=== PATIENT | male | born 1975 | race Caucasian/White ===

== ENCOUNTER 2017-03-25 19:45 | Inpatient (IN) | payer OTHER ==
[2017-03-25 20:31] VITALS: BMI 33.9
--- NOTE | 2017-03-25 21:59 | HP ---
COWS - Scale Resting Pulse: 1= [place] 81-100 Sweatin=Flushed/Facial Moisture Restless Observation: 1= Difficult to Sit Still Pupil Size: 1= Pupils >than Normal Bone or Joint Aches: 2= Severe Diffuse Aches Runny Nose/ Eye Tearin= Runny Nose/Eyes GI Upset > 30mins: 3= Vomiting/Diarrhea (diarrhea x 4, no vomiting) Tremor Observation: 2= Slight Tremor Visible Yawning Observation: 1= 1-2x During Session Anxiety or Irritability: 2=Irritable/Anxious Goose Flesh Skin: 0=Smooth Skin COWS Score: 17 CIWA Score - CIWA Score Nausea/Vomitin Muscle Tremors: 4-Moderate,w/Arms Extend Anxiety: 4-Mod. Anxious/Guarded Agitation: 1-Slight > Activity Paroxysmal Sweats: 3 Orientation: 0-Oriented Tacttile Disturbances: 0-None Auditory Disturbances: 0-None Visual Disturbances: 0-None Headache: 0-None Present CIWA-Ar Total Score: 15 Admission ROS S - HPI Chief Complaint: Alcohol and heroin withdrawal symptoms Allergies/Adverse Reactions: Allergies Allergy/AdvReac Type Severity Reaction Status Date / Time No Known Allergies Allergy Verified 03/25/17 21:37 History of Present Illness: 41 years old male with alcohol and heroin dependence is admitted to detox. Patient has been in previous detox and reports 3 years of sobriety. He denies past medical history and suicidal ideation at this time. Exam Limitations: No Limitations - Ebola screening Have you traveled outside of the country in the last 21 days: No Have you had contact with anyone from an Ebola affected area: No Have you been sick,other than usual withdrawal symptoms: No Do you have a fever: No - Review of Systems Constitutional: Chills, Loss of Appetite, Malaise, Night Sweats, Changes in sleep EENT: reports: Nose Congestion, Sinus Pressure Respiratory: reports: No Symptoms reported Cardiac: reports: No Symptoms Reported GI: reports: Diarrhea (x 4), Nausea, Poor Appetite, Poor Fluid Intake, Abdominal cramping : reports: No Symptoms Reported Musculoskeletal: reports: Back Pain, Muscle Pain, Muscle Weakness Integumentary: reports: Flushing Neuro: reports: Headache, Tingling, Tremors Endocrine: reports: No Symptoms Reported Hematology: reports: No Symptoms Reported Psychiatric: reports: Orientated x3, Agitated, Anxious Other Systems: Reviewed and Negative Patient History - Patient Medical History Hx Anemia: No Hx Asthma: No Hx Chronic Obstructive Pulmonary Disease (COPD): No Hx Cancer: No Hx Cardiac Disorders: No Hx Congestive Heart Failure: No Hx Hypertension: No Hx Hypercholesterolemia: No Hx Pacemaker: No HX Cerebrovascular Accident: No Hx Seizures: No Hx Diabetes: No Hx Gastrointestinal Disorders: No Hx Liver Disease: No Hx Genitourinary Disorders: No Hx Sexually Transmitted Disorders: No Hx Renal Disease (ESRD): No Hx Thyroid Disease: No Hx Human Immunodeficiency Virus (HIV): No (Negative 2016) Hx Hepatitis C: No (Negative 2017) Hx Depression: Yes (Denies suicidal ideation at this time) Hx Suicide Attempt: No Hx Bipolar Disorder: No Hx Schizophrenia: No - Patient Surgical History Past Surgical History: No Hx Neurologic Surgery: No Hx Cataract Extraction: No Hx Cardiac Surgery: No Hx Lung Surgery: No Hx Abdominal Surgery: No Hx Appendectomy: No Hx Cholecystectomy: No Hx Genitourinary Surgery: No Hx Orthopedic Surgery: No Anesthesia Reaction: No - PPD History Previous Implant?: Yes (Reports allergy ) Documented Results: Positive w/proof Implanted On Prior [facility] Admission?: Yes PPD to be Administered?: No - Reproductive History Patient is a Female of Child Bearing Age (11 -55 yrs old): No (MALE) - Smoking Cessation Smoking history: Current every day smoker Have you smoked in the past 12 months: Yes Aproximately how many cigarettes per day: 20 Hx Chewing Tobacco Use: No Initiated information on smoking cessation: Yes 'Breaking Loose' booklet given: 03/25/17 - Substance & Tx. History Hx Alcohol Use: Yes Substance Use Type: Cocaine, Heroin Hx Substance Use Treatment: No ([facility]) - Substances Abused Alcohol Route: Oral Frequency: Daily Amount used: liquor- 3 pints Age of first use: 19 Date of Last Use: 03/25/17 Heroin Route: Inhalation Frequency: Daily Amount used: 20 bags Age of first use: 38 Date of Last Use: 03/25/17 Family Disease History - Family Disease History Family Disease History: Diabetes: Grandparent, Father (etoh), Heart Disease: Grandparent, Father, Other: Father Admission Physical Exam BHS - Vital Signs Vital Signs: Vital Signs - 24 hr 03/25/17 20:25 Temperature 97.9 F Pulse Rate 83 Respiratory 18 Rate Blood Pressure 160/90 - Physical General Appearance: Yes: Moderate Distress HEENTM: Yes: EOMI, Normal Voice, SWETHA Respiratory: Yes: Lungs Clear, Normal Breath Sounds, No Respiratory Distress Neck: Yes: Supple Breast: Yes: Breast Exam Deferred Cardiology: Yes: Regular Rhythm, Regular Rate, S1, S2 Abdominal: Yes: Normal Bowel Sounds, Soft Genitourinary: Yes: Within Normal Limits Back: Yes: Normal Inspection Musculoskeletal: Yes: Back pain, Muscle Pain, Muscle weakness Extremities: Yes: Tremors Neurological: Yes: Alert, Normal Response Integumentary: Yes: Warm Lymphatic: Yes: Within Normal Limits - Diagnostic (1) Alcohol dependence with uncomplicated withdrawal Current Visit: Yes Status: Acute (2) Opioid dependence with withdrawal Current Visit: Yes Status: Acute (3) Cocaine dependence, uncomplicated Current Visit: Yes Status: Acute (4) Depression Current Visit: Yes Status: Chronic (5) Nicotine dependence Current Visit: Yes Status: Acute Qualifiers: Nicotine product type: cigarettes Substance use status: in withdrawal Qualified Code(s): F17.213 - Nicotine dependence, cigarettes, with withdrawal Cleared for Admission [facility] - Detox or Rehab [facility] Level of Care: Medically Managed Detox Regimen/Protocol: Methadone/Librium [facility] Breath Alcohol Content Breath Alcohol Content: 0 Urine Drug Screen - Results Drug Screen Negative: No Urine Drug Screen Results: JEREMY-Cocaine, OPI-Opiates, OXY-Oxycodone
[2017-03-25] MEDS ORDERED: MENTHOL/PHENOL 1 EACH UD MM PRN (22:09)
[2017-03-25] MEDS ORDERED: P-EPHED 60MG/TRIPROLIDI 2.5MG TABLET PO PRN (22:09)
[2017-03-25] MEDS ORDERED: METHADONE HCL 10 MG TABLET (FOR DETOX USE ONLY) PO ONE ×2 (22:09→23:00)
[2017-03-25] MEDS ORDERED: MAG HYDROX/AL HYDROX/SIMETH 30 ML UNIT-DOSE CUP PO PRN (22:09)
[2017-03-25] MEDS ORDERED: ACETAMINOPHEN 325 MG TABLET (FP) PO PRN (22:09)
[2017-03-25] MEDS ORDERED: IBUPROFEN 400 MG TABLET (FP) PO PRN (22:09)
[2017-03-25] MEDS ORDERED: LOPERAMIDE HCL 2 MG CAPSULE PO PRN (22:09)
[2017-03-25] MEDS ORDERED: NICOTINE POLACRILEX 2 MG GUM BC PRN (22:09)
[2017-03-25] MEDS ORDERED: guaiFENesin/D-METHORPHAN HB 10 ML UNIT-DOSE CUPS PO PRN (22:09)
[2017-03-25] MEDS ORDERED: MAGNESIUM HYDROX 2400MG/30ML ORAL SUSPENSION 30 ML CUP PO PRN (22:09)
[2017-03-25] MEDS ORDERED: MAGNESIUM CITRATE 300 ML BOTTLE PO PRN (22:09)
[2017-03-25] MEDS: chlordiazePOXIDE HCL 25 MG CAPSULE PO SCH (23:26)
[2017-03-26] MEDS: chlordiazePOXIDE HCL 25 MG CAPSULE PO SCH ×4 (05:29→22:23)
[2017-03-26] MEDS ORDERED: METHADONE HCL 10 MG TABLET (FOR DETOX USE ONLY) PO SCH (10:00)
[2017-03-26] MEDS: NICOTINE 14 MG/24 HOURS TOPICAL PATCH TD SCH (10:20)
[2017-03-26 10:21] LABS: HEMATOCRIT 43.4 % (35.4-49); HEMOGLOBIN 13.9 GM/dL (11.7-16.9); MCH 27.1 pg (25.7-33.7); MCHC 32.1 g/dl (32.0-35.9); MEAN CELL VOLUME 84.5 fl (80-96); MEAN PLT VOLUME 7.9 fl (7.5-11.1); PLATELET COUNT 284 K/MM3 (134-434); RBC 5.13 M/mm3 (4.00-5.60); RDW 14.6 % (11.9-15.9); WHITE BLOOD COUNT 8.1 K/mm3 (4.0-10.0)
[2017-03-26 10:30] LABS: CHLORIDE 102 mmol/L (98-107); POTASSIUM 3.6 mmol/L (3.5-5.1); SODIUM 140 mmol/L (136-145)
[2017-03-26 10:43] LABS: ALBUMIN 3.5 g/dl (3.4-5.0); ALK PHOS 67 U/L (45-117); ANION GAP 8 (8-16); BILIRUBIN,TOTAL 0.5 mg/dL (0.2-1.0); BLOOD UREA NITROGEN 11 mg/dL (7-18); CALCIUM 8.6 mg/dL (8.5-10.1); CO2 30 mmol/L (21-32); CREATININE 0.7 mg/dL (0.7-1.3); GLUCOSE,RANDOM 88 mg/dL (74-106); SGOT/AST 17 U/L (15-37); SGPT/ALT 28 U/L (12-78); TOT PROT 6.9 g/dl (6.4-8.2)
--- NOTE | 2017-03-26 11:11 | PN ---
[facility] CIWA - CIWA Score Nausea/Vomitin-No Nausea/No Vomiting Muscle Tremors: 4-Moderate,w/Arms Extend Anxiety: 4-Mod. Anxious/Guarded Agitation: 3 Paroxysmal Sweats: 1-Minimal Palms Moist Orientation: 0-Oriented Tacttile Disturbances: 3-Moderate Itch/Numb/Burn Auditory Disturbances: 0-None Visual Disturbances: 0-None Headache: 0-None Present CIWA-Ar Total Score: 15 [facility] COWS - Scale Resting Pulse: 1= [place] 81-100 Sweatin= Chills/Flushing Restless Observation: 3= Extraneous Movement Pupil Size: 2= Moderately Dilated Bone or Joint Aches: 4=Acute Joint/Muscle Pain Runny Nose/ Eye Tearin= None GI Upset > 30mins: 0= None Tremor Observation of Outstretched Hands: 1= Tremor Lena, Not Seen Yawning Observation: 1= 1-2x During Session Anxiety or Irritability: 1=Feels Anxious/Irritable Goose Flesh Skin: 0=Smooth Skin COWS Score: 14 [facility] Progress Note (SOAP) Subjective: ANXIETY,SWEATS,FATIGUE. Objective: 03/26/17 11:10 Vital Signs Temperature 97.1 F L 03/26/17 09:09 Pulse Rate 87 03/26/17 09:09 Respiratory Rate 19 03/26/17 06:48 Blood Pressure 152/86 03/26/17 09:09 O2 Sat by Pulse Oximetry (%) Laboratory Last Values WBC 8.1 K/mm3 (4.0-10.0) 03/26/17 07:00 RBC 5.13 M/mm3 (4.00-5.60) 03/26/17 07:00 Hgb 13.9 GM/dL (11.7-16.9) 03/26/17 07:00 Hct 43.4 % (35.4-49) 03/26/17 07:00 MCV 84.5 fl (80-96) 03/26/17 07:00 MCH 27.1 pg (25.7-33.7) 03/26/17 07:00 MCHC 32.1 g/dl (32.0-35.9) 03/26/17 07:00 RDW 14.6 % (11.9-15.9) 03/26/17 07:00 Plt Count 284 K/MM3 (134-434) 03/26/17 07:00 MPV 7.9 fl (7.5-11.1) 03/26/17 07:00 Sodium 140 mmol/L (136-145) 03/26/17 07:00 Potassium 3.6 mmol/L (3.5-5.1) 03/26/17 07:00 Chloride 102 mmol/L (98-107) 03/26/17 07:00 Carbon Dioxide 30 mmol/L (21-32) 03/26/17 07:00 Anion Gap 8 (8-16) 03/26/17 07:00 BUN 11 mg/dL (7-18) 03/26/17 07:00 Creatinine 0.7 mg/dL (0.7-1.3) 03/26/17 07:00 Creat Clearance w eGFR > 60 (>60) 03/26/17 07:00 Random Glucose 88 mg/dL (74-106) D 03/26/17 07:00 Calcium 8.6 mg/dL (8.5-10.1) 03/26/17 07:00 Total Bilirubin 0.5 mg/dL (0.2-1.0) D 03/26/17 07:00 AST 17 U/L (15-37) D 03/26/17 07:00 ALT 28 U/L (12-78) D 03/26/17 07:00 Alkaline Phosphatase 67 U/L (45-117) 03/26/17 07:00 Total Protein 6.9 g/dl (6.4-8.2) 03/26/17 07:00 Albumin 3.5 g/dl (3.4-5.0) 03/26/17 07:00 OTHER LABS PENDING Assessment: 03/26/17 11:10 WITHDRAWAL SX Plan: CONTINUE DETOX
[2017-03-26] MEDS: PRENATAL VITAMINS W/ FOLIC ACID TABLET (FP) PO SCH (11:24)
--- NOTE | 2017-03-26 14:32 | CONSULT ---
[facility] Psychiatric Consult - Data Date of interview: 03/26/17 Admission source: [facility] Identifying data: Readmission to [facility] for this 41 y/o male seeking detox treatment on for alcohol,heroin and cocaine dependence.Patient is single,a father of one,domiciled and currently employed ( self-report). Substance Abuse History: Confirmed by patient in this interview.Details in current [facility] report.Smoking history: Current every day smoker. Have you smoked in the past 12 months: Yes. Aproximately how many cigarettes per day: 20. Hx Chewing Tobacco Use: No. Initiated information on smoking cessation: Yes. ' Breaking Loose' booklet given: 03/25/17. - Substance & Tx. History. Hx Alcohol Use: Yes. Substance Use Type: Cocaine, Heroin. Hx Substance Use Treatment: No ([facility]). - Substances Abused. Alcohol. Route: Oral. Frequency: Daily. Amount used: liquor- 3 pints. Age of first use: 19. Date of Last Use: 03/25/17. Heroin. Route: Inhalation. Frequency: Daily. Amount used: 20 bags. Age of first use: 38. Date of Last Use: 03/25/17 Medical History: Patient reports good general health. Psychiatric History: Patient denies. Physical/Sexual Abuse/Trauma History: Patient denies. Additional Comment: Urine Drug Screen Results: JEREMY-Cocaine, OPI-Opiates, OXY- Oxycodone.Noted. Mental Status Exam - Mental Status Exam Alert and Oriented to: Time, Place, Person Cognitive Function: Impaired (due to moderately sedated state) Patient Appearance: Disheveled (obese) Mood: Withdrawn Affect: Mood Congruent, Constricted Patient Behavior: Sedated, Fatigued, Cooperative Speech Pattern: Delayed, Slurred (non-spontaneous speech but patient is able to answer simple questions and provide personal information) Voice Loudness: Normal Thought Process: Disorganized, Disoriented (due to sedation) Thought Disorder: Not Present Hallucinations: Denies Suicidal Ideation: Denies Homicidal Ideation: Denies Insight/Judgement: Poor Sleep: Well Appetite: Good Muscle strength/Tone: Normal Gait/Station: Other (slow and unsteady gait) Psychiatric Findings - Problem List ([place] 1, 2,3) (1) Opioid dependence with withdrawal Current Visit: Yes Status: Acute (2) Alcohol dependence with uncomplicated withdrawal Current Visit: Yes Status: Acute (3) Cocaine dependence, uncomplicated Current Visit: Yes Status: Acute (4) Nicotine dependence Current Visit: Yes Status: Acute Qualifiers: Nicotine product type: cigarettes Substance use status: in withdrawal Qualified Code(s): F17.213 - Nicotine dependence, cigarettes, with withdrawal - Initial Treatment Plan Initial Treatment Plan: Psychoeducation and support provided in this session.Detoxification in progress.Falls precautions.Observation.
[2017-03-26 17:06] LABS: URINE APPEARANCE CLEAR; URINE BILIRUBIN NEGATIVE (NEGATIVE); URINE BLOOD NEGATIVE (NEGATIVE); URINE COLOR YELLOW; URINE GLUCOSE (UA) NEGATIVE (NEGATIVE); URINE KETONE NEGATIVE (NEGATIVE); URINE LEUK ESTERASE NEGATIVE (NEGATIVE); URINE NITRITE NEGATIVE (NEGATIVE); URINE PROTEIN NEGATIVE (NEGATIVE); URINE UROBILINOGEN NEGATIVE mg/dL (0.2-1.0)
[2017-03-26] MEDS: THIAMINE HCL 100 MG TABLET (FP) PO SCH (22:23)
[2017-03-27] MEDS: chlordiazePOXIDE HCL 25 MG CAPSULE PO SCH ×3 (06:18→18:01)
[2017-03-27] MEDS: NICOTINE 14 MG/24 HOURS TOPICAL PATCH TD SCH (10:23)
[2017-03-27] MEDS: PRENATAL VITAMINS W/ FOLIC ACID TABLET (FP) PO SCH (10:23)
[2017-03-27] MEDS: METHADONE HCL 5 MG TABLET (FOR DETOX USE ONLY) PO SCH (10:24)
--- NOTE | 2017-03-27 10:54 | EKG ---
Test Reason : Blood Pressure : / mmHG Vent. Rate : 066 BPM Atrial Rate : 066 BPM P-R Int : 150 ms QRS Dur : 108 ms QT Int : 410 ms P-R-T Axes : 058 035 019 degrees QTc Int : 429 ms NORMAL SINUS RHYTHM NORMAL ECG NO PREVIOUS ECGS AVAILABLE Confirmed by AALIYAH ACOSTA, RUTH ([id number]) on 03/27/2017 10:54:15 AM Referred By: Confirmed By:RUTH FISCHER MD
--- NOTE | 2017-03-27 11:40 | PN ---
[facility] CIWA - CIWA Score Nausea/Vomitin-No Nausea/No Vomiting Muscle Tremors: 4-Moderate,w/Arms Extend Anxiety: 4-Mod. Anxious/Guarded Agitation: 4-Moderately Restless Paroxysmal Sweats: 1-Minimal Palms Moist Orientation: 0-Oriented Tacttile Disturbances: 3-Moderate Itch/Numb/Burn Auditory Disturbances: 0-None Visual Disturbances: 0-None Headache: 0-None Present CIWA-Ar Total Score: 16 S COWS - Scale Resting Pulse: 0= [place] 80 or Below Sweatin= Chills/Flushing Restless Observation: 3= Extraneous Movement Pupil Size: 0= Normal to Room Light Bone or Joint Aches: 2= Severe Diffuse Aches Runny Nose/ Eye Tearin= Nasal Congestion GI Upset > 30mins: 0= None Tremor Observation of Outstretched Hands: 2= Slight Tremor Visible Yawning Observation: 1= 1-2x During Session Anxiety or Irritability: 2=Irritable/Anxious Goose Flesh Skin: 0=Smooth Skin COWS Score: 12 S Progress Note (SOAP) Subjective: ANXIETY,SWEATS,IRRITABILITY,LABILE MOOD-CRYING. PT WAS SEEN BY PSYCH PREVIOUS DAY BUT WILL REFER TODAY FOR F/U. Objective: 03/27/17 11:43 Vital Signs Temperature 95.6 F L 03/27/17 09:08 Pulse Rate 68 03/27/17 09:08 Respiratory Rate 16 03/27/17 09:08 Blood Pressure 136/93 03/27/17 09:08 O2 Sat by Pulse Oximetry (%) Laboratory Last Values WBC 8.1 K/mm3 (4.0-10.0) 03/26/17 07:00 RBC 5.13 M/mm3 (4.00-5.60) 03/26/17 07:00 Hgb 13.9 GM/dL (11.7-16.9) 03/26/17 07:00 Hct 43.4 % (35.4-49) 03/26/17 07:00 MCV 84.5 fl (80-96) 03/26/17 07:00 MCH 27.1 pg (25.7-33.7) 03/26/17 07:00 MCHC 32.1 g/dl (32.0-35.9) 03/26/17 07:00 RDW 14.6 % (11.9-15.9) 03/26/17 07:00 Plt Count 284 K/MM3 (134-434) 03/26/17 07:00 MPV 7.9 fl (7.5-11.1) 03/26/17 07:00 Sodium 140 mmol/L (136-145) 03/26/17 07:00 Potassium 3.6 mmol/L (3.5-5.1) 03/26/17 07:00 Chloride 102 mmol/L (98-107) 03/26/17 07:00 Carbon Dioxide 30 mmol/L (21-32) 03/26/17 07:00 Anion Gap 8 (8-16) 03/26/17 07:00 BUN 11 mg/dL (7-18) 03/26/17 07:00 Creatinine 0.7 mg/dL (0.7-1.3) 03/26/17 07:00 Creat Clearance w eGFR > 60 (>60) 03/26/17 07:00 Random Glucose 88 mg/dL (74-106) D 03/26/17 07:00 Calcium 8.6 mg/dL (8.5-10.1) 03/26/17 07:00 Total Bilirubin 0.5 mg/dL (0.2-1.0) D 03/26/17 07:00 AST 17 U/L (15-37) D 03/26/17 07:00 ALT 28 U/L (12-78) D 03/26/17 07:00 Alkaline Phosphatase 67 U/L (45-117) 03/26/17 07:00 Total Protein 6.9 g/dl (6.4-8.2) 03/26/17 07:00 Albumin 3.5 g/dl (3.4-5.0) 03/26/17 07:00 Urine Color Yellow 03/26/17 13:15 Urine Appearance Clear 03/26/17 13:15 Urine pH 6.0 (5.0-8.0) 03/26/17 13:15 Ur Specific [place] 1.020 (1.001-1.035) 03/26/17 13:15 Urine Protein Negative (NEGATIVE) 03/26/17 13:15 Urine Glucose (UA) Negative (NEGATIVE) 03/26/17 13:15 Urine Ketones Negative (NEGATIVE) 03/26/17 13:15 Urine Blood Negative (NEGATIVE) 03/26/17 13:15 Urine Nitrite Negative (NEGATIVE) 03/26/17 13:15 Urine Bilirubin Negative (NEGATIVE) 03/26/17 13:15 Urine Urobilinogen Negative mg/dL (0.2-1.0) 03/26/17 13:15 Ur Leukocyte Esterase Negative (NEGATIVE) 03/26/17 13:15 RPR Titer Nonreactive (NONREACTIVE) 03/26/17 07:00 Assessment: 03/27/17 11:43 WITHDRAWAL SX Plan: CONTINUE DETOX F/U WITH PSYCHIATRIST TODAY
--- NOTE | 2017-03-27 17:56 | PN ---
Psychiatric Progress Note Vital Signs: Vital Signs Period Temp Pulse Resp BP Sys/[place] Pulse Ox Last 24 Hr 95.6 F-98.3 F 68-101 16-20 118-152/72-95 Date of Session: 03/27/17 Chief Complaint:: None offered. " I feel fine.I am getting discharged on Saturday. " HPI: Day 3 of detoxification treatment for alcohol,heroin and cocaine dependence.Doing well.Medications are well tolerated.Uneventful hospital course. ROS: Unremarkable.Markedly improved mental status.Clear sensorium.No somatic complaints. Current Medications: Active Medications Generic Name Dose Route Start Last Admin Trade Name Freq PRN Reason Stop Dose Admin Acetaminophen 650 mg 03/25/17 22:09 Tylenol - PO Q4H PRN FEVER Al Hydroxide/Mg Hydroxide 30 ml 03/25/17 22:09 Mylanta Oral Suspension - PO Q6H PRN DYSPEPSIA Chlordiazepoxide HCl 15 mg 03/27/17 23:00 Librium - PO 03/28/17 17:01 [id number] CRYSTAL Chlordiazepoxide HCl 10 mg 03/28/17 23:00 Librium - PO 03/29/17 17:01 [id number] CRYSTAL Chlordiazepoxide HCl 25 mg 03/25/17 22:09 Librium - PO 03/28/17 22:09 Q4H PRN WITHDRAWAL(CONT SUBST) Eucalyptus/Menthol/Phenol/Sorbitol 1 each 03/25/17 22:09 Cepastat Lozenge - MM Q4H PRN SORE THROAT Guaifenesin 10 ml 03/25/17 22:09 Robitussin Dm - PO Q6H PRN COUGH Ibuprofen 400 mg 03/25/17 22:09 Motrin - PO Q6H PRN PAIN LEVEL 4-6 Loperamide HCl 4 mg 03/25/17 22:09 Imodium - PO Q6H PRN DIARRHEA Magnesium Citrate 300 ml 03/25/17 22:09 Citroma - PO Q48H PRN CONSTIPATION Magnesium Hydroxide 30 ml 03/25/17 22:09 Milk Of Magnesia - PO DAILY PRN CONSTIPATION Methadone HCl 15 mg 03/27/17 10:00 03/27/17 10:24 Dolophine - PO 03/28/17 10:01 15 mg DAILY CRYSTAL Administration Methadone HCl 5 mg 03/30/17 06:00 Dolophine - PO 03/30/17 06:01 DAILY@0600 CRYSTAL Methadone HCl 10 mg 03/29/17 10:00 Dolophine - PO 03/29/17 10:01 DAILY CRYSTAL Nicotine 14 mg 03/26/17 10:00 03/27/17 10:23 Nicoderm Patch - TD 14 mg DAILY CRYSTAL Administration Nicotine Polacrilex 2 mg 03/25/17 22:09 Nicorette Gum - BC Q2H PRN NICOTINE REPLACEMENT RX Multivit/Folic Acid/Iron 1 tab 03/26/17 10:00 03/27/17 10:23 Vitamins (Sjr) - PO 1 tab DAILY CRYSTAL Administration Pseudoephedrine/Triprolidine 1 combo 03/25/17 22:09 Actifed - PO TID PRN NASAL CONGESTION Thiamine HCl 100 mg 03/26/17 22:00 03/26/17 22:23 Vitamin B1 - PO 100 mg HS CRYSTAL Administration Medication(s) Change(s): None. Current Side Effect: No Lab tests ordered: No Lab tests reviewed: Yes Provider note:: Patient referred for re-evaluation at own request.Unclear reasons.It appears that Mr Doll wanted to " see the psychiatrist for a follow -up." Progress notes (from different disciplines) reviewed and appreciated.All are indicative of a benign course ot treatment.Met with the patient at bedside.He denies having " anything new to discuss with psychiatrists." Observed as serene,calm,well-controlled and appropriate on approach.Mr Doll endorses adequate sleep,decent appetite,neutral mood,fair energy level and motivation for transition to aftercare.He formulates his goals as follows : committment to the terms of his outpatient program,sobriety,lifestyle changes and avoidance of situations that predispose to relapses.Patient shows no clinical evidence of psychosis,elicia or impulsivity.Mood remains euthymic.Patient has been visible on the unit,ambulatory and sociable.Adherent to rules and regulations.Continuously in good control.He has consistently denied suicidal,homicidal ideation,intent or plan.Baseline mental status. Total face to face time:: 25 Mental Status Exam - Mental Status Exam Alert and Oriented to: Time, Place, Person Cognitive Function: Good Patient Appearance: Well Groomed Mood: Hopeful, Euthymic Affect: Appropriate, Normal Range Patient Behavior: Appropriate, Cooperative Speech Pattern: Clear, Appropriate Voice Loudness: Normal Thought Process: Intact, Goal Oriented Thought Disorder: Not Present Hallucinations: Denies Suicidal Ideation: Denies Homicidal Ideation: Denies Insight/Judgement: Fair Sleep: Well Appetite: Good Muscle strength/Tone: Normal Gait/Station: Normal Psychiatric Treatment Plan - Problem List (1) Opioid dependence with withdrawal Current Visit: Yes (2) Alcohol dependence with uncomplicated withdrawal Current Visit: Yes (3) Cocaine dependence, uncomplicated Current Visit: Yes (4) Nicotine dependence Current Visit: Yes Qualifiers: Nicotine product type: cigarettes Substance use status: in withdrawal Qualified Code(s): F17.213 - Nicotine dependence, cigarettes, with withdrawal
[2017-03-27] MEDS: chlordiazePOXIDE HCL 25 MG CAPSULE PO PRN (19:19)
[2017-03-27] MEDS: hydrOXYzine PAMOATE 50 MG CAPSULE (FP) PO PRN (19:55)
[2017-03-27] MEDS: chlordiazePOXIDE 5 MG CAPSULE PO SCH (22:22)
[2017-03-27] MEDS: THIAMINE HCL 100 MG TABLET (FP) PO SCH (22:22)
[2017-03-28] MEDS: chlordiazePOXIDE HCL 25 MG CAPSULE PO PRN (01:01)
[2017-03-28] MEDS: hydrOXYzine PAMOATE 50 MG CAPSULE (FP) PO PRN (01:01)
[2017-03-28] MEDS: chlordiazePOXIDE 5 MG CAPSULE PO SCH ×2 (05:57→10:00)
[2017-03-28 06:10] VITALS: BP 132/95; PULSE 88; TEMP 96.1
--- NOTE | 2017-03-28 09:55 | DS ---
[facility] Detox Discharge Summary Admission Date: 03/25/17 Discharge Date: 03/28/17 - History Present History: Alcohol Dependence, Cocaine Dependence, Opioid Dependence Additional Comments: PT SIGNED OUT AMA FOR PERSONAL REASONS. STATES HE WANTS TO GET OUT OF HERE. PT HAS BEEN CONSTANTLY BEEN ENCOURAGED SINCE ARRIVAL TO DETOX TO FOCUS ON HIS TREATMENT BUT CONTINUED TO EXPRESS DESIRE TO LEAVE. ALERT O X 3. NAD. Pertinent Past History: HX DEPRESSION/ANXIETY - Physical Exam Results Vital Signs: Vital Signs Temperature 96.1 F L 03/28/17 06:09 Pulse Rate 88 03/28/17 06:09 Respiratory Rate 18 03/28/17 06:09 Blood Pressure 132/95 03/28/17 06:09 O2 Sat by Pulse Oximetry (%) Pertinent Admission Physical Exam Findings: WITHDRAWAL SX Laboratory Last Values WBC 8.1 K/mm3 (4.0-10.0) 03/26/17 07:00 RBC 5.13 M/mm3 (4.00-5.60) 03/26/17 07:00 Hgb 13.9 GM/dL (11.7-16.9) 03/26/17 07:00 Hct 43.4 % (35.4-49) 03/26/17 07:00 MCV 84.5 fl (80-96) 03/26/17 07:00 MCH 27.1 pg (25.7-33.7) 03/26/17 07:00 MCHC 32.1 g/dl (32.0-35.9) 03/26/17 07:00 RDW 14.6 % (11.9-15.9) 03/26/17 07:00 Plt Count 284 K/MM3 (134-434) 03/26/17 07:00 MPV 7.9 fl (7.5-11.1) 03/26/17 07:00 Sodium 140 mmol/L (136-145) 03/26/17 07:00 Potassium 3.6 mmol/L (3.5-5.1) 03/26/17 07:00 Chloride 102 mmol/L (98-107) 03/26/17 07:00 Carbon Dioxide 30 mmol/L (21-32) 03/26/17 07:00 Anion Gap 8 (8-16) 03/26/17 07:00 BUN 11 mg/dL (7-18) 03/26/17 07:00 Creatinine 0.7 mg/dL (0.7-1.3) 03/26/17 07:00 Creat Clearance w eGFR > 60 (>60) 03/26/17 07:00 Random Glucose 88 mg/dL (74-106) D 03/26/17 07:00 Calcium 8.6 mg/dL (8.5-10.1) 03/26/17 07:00 Total Bilirubin 0.5 mg/dL (0.2-1.0) D 03/26/17 07:00 AST 17 U/L (15-37) D 03/26/17 07:00 ALT 28 U/L (12-78) D 03/26/17 07:00 Alkaline Phosphatase 67 U/L (45-117) 03/26/17 07:00 Total Protein 6.9 g/dl (6.4-8.2) 03/26/17 07:00 Albumin 3.5 g/dl (3.4-5.0) 03/26/17 07:00 Urine Color Yellow 03/26/17 13:15 Urine Appearance Clear 03/26/17 13:15 Urine pH 6.0 (5.0-8.0) 03/26/17 13:15 Ur Specific [place] 1.020 (1.001-1.035) 03/26/17 13:15 Urine Protein Negative (NEGATIVE) 03/26/17 13:15 Urine Glucose (UA) Negative (NEGATIVE) 03/26/17 13:15 Urine Ketones Negative (NEGATIVE) 03/26/17 13:15 Urine Blood Negative (NEGATIVE) 03/26/17 13:15 Urine Nitrite Negative (NEGATIVE) 03/26/17 13:15 Urine Bilirubin Negative (NEGATIVE) 03/26/17 13:15 Urine Urobilinogen Negative mg/dL (0.2-1.0) 03/26/17 13:15 Ur Leukocyte Esterase Negative (NEGATIVE) 03/26/17 13:15 RPR Titer Nonreactive (NONREACTIVE) 03/26/17 07:00 - Treatment Hospital Course: Discharged Condition Good - Medication Discharge Medications: Ambulatory Orders NK [No Known Home Medication] 05/05/13 - Diagnosis (1) Alcohol dependence with uncomplicated withdrawal Status: Acute (2) Cocaine dependence, uncomplicated Status: Acute (3) Nicotine dependence Status: Acute Qualifiers: Nicotine product type: cigarettes Substance use status: in withdrawal Qualified Code(s): F17.213 - Nicotine dependence, cigarettes, with withdrawal (4) Opioid dependence with withdrawal Status: Acute - AMA Did Patient Leave Against Medical Advice: Yes (AMA)
[2017-03-28] MEDS: METHADONE HCL 5 MG TABLET (FOR DETOX USE ONLY) PO SCH (10:00)
[2017-03-28] MEDS: PRENATAL VITAMINS W/ FOLIC ACID TABLET (FP) PO SCH (10:00)
[2017-03-28] MEDS: NICOTINE 14 MG/24 HOURS TOPICAL PATCH TD SCH (10:00)
[2017-03-28] MEDS ORDERED: chlordiazePOXIDE HCL 10 MG CAPSULE PO SCH (23:00)
[2017-03-29] MEDS ORDERED: METHADONE HCL 10 MG TABLET (FOR DETOX USE ONLY) PO SCH (10:00)
[2017-03-30] MEDS ORDERED: METHADONE HCL 5 MG TABLET (FOR DETOX USE ONLY) PO SCH (06:00)
== END 2017-03-28 09:05 | disposition left against medical advice (07) | DRG 770 ==
LOC: YASAS 19:45 → Y3N 22:23
PROVIDERS: ADMIT Internal Medicine; ATTEND Internal Medicine
PROC: HZ2ZZZZ Detoxification Services for Substance Abuse Treatment (ICD-10-PCS; principal; 2017-03-25)
DX: F11.23 Opioid dependence with withdrawal (principal); F10.230 Alcohol dependence with withdrawal, uncomplicated; F14.20 Cocaine dependence, uncomplicated; F17.213 Nicotine dependence, cigarettes, with withdrawal; F32.9 Major depressive disorder, single episode, unspecified
CPT/HCPCS: 36415; 71045-TC-FY; 80053; 81003; 85027; 86593; 93005; 93010

== ENCOUNTER 2017-05-28 15:23 | Inpatient (IN) | payer OTHER ==
[2017-05-28 18:01] VITALS: BMI 35.2
--- NOTE | 2017-05-28 19:59 | HP ---
Admission [facility] - [facility] Chief Complaint: I am here for rehab "I am here to get help, I don't want to loose my child " Allergies/Adverse Reactions: Allergies Allergy/AdvReac Type Severity Reaction Status Date / Time No Known Allergies Allergy Verified 05/28/17 17:56 History of Present Illness: 41 years old male with nicotine, alcohol and heroin dependence is admitted to detox. Patient current at [facility] MMTP currently 110 mg, last medicated today. Patient has been in previous detox and reports 3 years of sobriety. LAst detox at [facility] 03/25/17 -03/28/17. PMHX: depression, anxiety, insomnia (stays up 3-4 nights). He denies past medical history and suicidal/ homicidal ideation at this time. Denies hx of seizures or blackouts. Reports feeling depress currently has a CPS case using drugs. Exam Limitations: No Limitations - Ebola screening Have you traveled outside of the country in the last 21 days: No Have you had contact with anyone from an Ebola affected area: No Have you been sick,other than usual withdrawal symptoms: No Do you have a fever: No - Review of Systems Constitutional: Chills, Changes in sleep (stays up 3-4 days in a row) EENT: reports: No Symptoms Reported Respiratory: reports: No Symptoms reported Cardiac: reports: No Symptoms Reported GI: reports: Constipated (last BM yesterday), Poor Fluid Intake, Abdominal cramping : reports: No Symptoms Reported Musculoskeletal: reports: Back Pain Integumentary: reports: No Symptoms Reported Neuro: reports: See HPI, Headache Endocrine: reports: No Symptoms Reported Hematology: reports: No Symptoms Reported Psychiatric: reports: Orientated x3, Depressed Other Systems: Reviewed and Negative Patient History - Patient Medical History Hx Anemia: No Hx Asthma: No Hx Chronic Obstructive Pulmonary Disease (COPD): No Hx Cancer: No Hx Cardiac Disorders: No Hx Congestive Heart Failure: No Hx Hypertension: No Hx Hypercholesterolemia: No Hx Pacemaker: No HX Cerebrovascular Accident: No Hx Seizures: No Hx Dementia: No Hx Diabetes: No Hx Gastrointestinal Disorders: No Hx Liver Disease: No Hx Genitourinary Disorders: No Hx Sexually Transmitted Disorders: No Hx Renal Disease (ESRD): No Hx Thyroid Disease: No Hx Human Immunodeficiency Virus (HIV): No (Negative 2016) Hx Hepatitis C: No (Negative 2016) Hx Depression: Yes (Denies suicidal ideation at this time) Hx Suicide Attempt: No Hx Bipolar Disorder: No Hx Schizophrenia: No - Patient Surgical History Past Surgical History: No Hx Neurologic Surgery: No Hx Cataract Extraction: No Hx Cardiac Surgery: No Hx Lung Surgery: No Hx Breast Surgery: No Hx Breast Biopsy: No Hx Abdominal Surgery: No Hx Appendectomy: No Hx Cholecystectomy: No Hx Genitourinary Surgery: No Hx Section: No Hx Orthopedic Surgery: No Anesthesia Reaction: No - Reproductive History Patient is a Female of Child Bearing Age (11 -55 yrs old): No - Smoking Cessation Smoking history: Current every day smoker Have you smoked in the past 12 months: Yes Aproximately how many cigarettes per day: 20 Hx Chewing Tobacco Use: No Initiated information on smoking cessation: Yes 'Breaking Loose' booklet given: 05/28/17 - Substance & Tx. History Hx Alcohol Use: Yes Hx Substance Use: Yes Substance Use Type: Alcohol, Cocaine, Heroin Hx Substance Use Treatment: Yes ([facility] 2017) - Substances Abused Heroin Route: Inhalation Frequency: Daily Amount used: 10 bags Age of first use: 38 Date of Last Use: 05/28/17 Cocaine Route: Inhalation Frequency: Daily Amount used: $20 Age of first use: 38 Date of Last Use: 05/27/17 Family Disease History - Family Disease History Family Disease History: Diabetes: Grandparent, Father (etoh), Heart Disease: Grandparent, Father, Other: Father Admission Physical Exam BHS - Vital Signs Vital Signs: Vital Signs - 24 hr 05/28/17 17:28 Temperature 97.0 F L Pulse Rate 67 Respiratory 18 Rate Blood Pressure 148/88 - Physical General Appearance: Yes: No Apparent Distress, Appropriately Dressed, Obese, Anxious HEENTM: Yes: EOMI, Hearing grossly Normal, Normal ENT Inspection, Normocephalic , Normal Voice, SWETHA, Pharynx Normal, Tm's normal Respiratory: Yes: Chest Non-Tender, Lungs Clear, Normal Breath Sounds, No Respiratory Distress, No Accessory Muscle Use Neck: Yes: No masses,lesions,Nodules, Trachea in good position Breast: Yes: Breast Exam Deferred Cardiology: Yes: Regular Rhythm, Regular Rate Abdominal: Yes: Normal Bowel Sounds, Non Tender, Soft, Protuberent Genitourinary: Yes: Within Normal Limits Back: Yes: Normal Inspection Extremities: Yes: Normal Capillary Refill, Normal Inspection, Normal Range of Motion, Non-Tender Neurological: Yes: director outpatient services II-XII NML intact, Fully Oriented, Alert, Motor Strength 5/5, Normal Response, Depressed Affect Integumentary: Yes: Normal Color, Dry, Warm Lymphatic: Yes: Within Normal Limits - Diagnostic (1) Alcohol dependence Current Visit: Yes Status: Acute (2) Difficulty sleeping Current Visit: Yes Status: Acute (3) Cocaine dependence, uncomplicated Current Visit: No Status: Acute (4) Nicotine dependence Current Visit: Yes Status: Acute Qualifiers: Nicotine product type: cigarettes Substance use status: in withdrawal Qualified Code(s): F17.213 - Nicotine dependence, cigarettes, with withdrawal (5) Opioid dependence Current Visit: No Status: Acute Qualifiers: Substance use status: uncomplicated Qualified Code(s): F11.20 - Opioid dependence, uncomplicated (6) Depression Current Visit: Yes Status: Chronic Qualifiers: Depression Type: unspecified Qualified Code(s): F32.9 - Major depressive disorder, single episode, unspecified (7) Methadone maintenance therapy patient Current Visit: Yes Status: Acute Comment: puneetly on 110mg, dose pending verification Cleared for Admission [facility] - Detox or Rehab [facility] Level of Care: Medically Managed Detox Regimen/Protocol: Librium [facility] Breath Alcohol Content Breath Alcohol Content: 0 Urine Drug Screen - Results Drug Screen Negative: No Urine Drug Screen Results: JEREMY-Cocaine, OPI-Opiates, MTD-Methadone
[2017-05-28] MEDS ORDERED: guaiFENesin/D-METHORPHAN HB 10 ML UNIT-DOSE CUPS PO PRN (20:07)
[2017-05-28] MEDS ORDERED: MENTHOL/PHENOL 1 EACH UD MM PRN (20:07)
[2017-05-28] MEDS ORDERED: ACETAMINOPHEN 325 MG TABLET (FP) PO PRN (20:07)
[2017-05-28] MEDS ORDERED: MAG HYDROX/AL HYDROX/SIMETH 30 ML UNIT-DOSE CUP PO PRN (20:07)
[2017-05-28] MEDS ORDERED: IBUPROFEN 400 MG TABLET (FP) PO PRN (20:07)
[2017-05-28] MEDS ORDERED: LOPERAMIDE HCL 2 MG CAPSULE PO PRN (20:07)
[2017-05-28] MEDS ORDERED: MAGNESIUM CITRATE 300 ML BOTTLE PO PRN (20:07)
[2017-05-28] MEDS ORDERED: MAGNESIUM HYDROX 2400MG/30ML ORAL SUSPENSION 30 ML CUP PO PRN (20:07)
[2017-05-28] MEDS: THIAMINE HCL 100 MG TABLET (FP) PO SCH (21:42)
[2017-05-29] MEDS ORDERED: METHADONE HCL 10 MG TABLET PO ONE (08:45)
[2017-05-29 08:47] LABS: URINE APPEARANCE CLEAR; URINE BILIRUBIN NEGATIVE (<2.0 mg/dL); URINE BLOOD NEGATIVE (NEGATIVE); URINE COLOR LTYELLOW; URINE GLUCOSE (UA) NEGATIVE (NEGATIVE); URINE KETONE NEGATIVE (NEGATIVE); URINE LEUK ESTERASE NEGATIVE (NEGATIVE); URINE NITRITE NEGATIVE (NEGATIVE); URINE PROTEIN NEGATIVE (NEGATIVE); URINE UROBILINOGEN NEGATIVE mg/dL (0.2-1.0)
[2017-05-29] MEDS ORDERED: METHADONE HCL 10 MG TABLET ONE (08:53)
[2017-05-29] MEDS ORDERED: METHADONE HCL 40 MG DISPERSABLE TABLET ONE (08:54)
[2017-05-29] MEDS ORDERED: METHADONE 80 MG, METHADONE 30 MG PO ONE (08:55)
[2017-05-29] MEDS: PRENATAL VITAMINS W/ FOLIC ACID TABLET (FP) PO SCH (10:01)
[2017-05-29] MEDS: NICOTINE 21 MG/24 HOURS TOPICAL PATCH TD SCH ×2 (10:01→14:34)
--- NOTE | 2017-05-29 10:49 | HP ---
Psychiatrist Admission - Data Date of interview: 05/29/17 Admission source: [facility] Identifying data: This is the first 5n inpatient rehabilitation admission for this 41 year old male father of one, he is domciled. Medical History: Patient reports a good health, smokes cigarettes 1PPD, on MMTP 110 mg Psychiatric History: Denies history of psychiatric treatment, he was very sedated during evaluation, then he started crying stating he needs to call his family and was asnking "when I will see my councelor", telegraphic typewriter operator explained that he will meet his counselor this afternoon. Physical/Sexual Abuse/Trauma History: Denies history of sexual, physical and verbal abuse. Additional Comment: Reports has a CPS case due to his drug use. Vital Signs: Vital Signs - 24 hr 05/28/17 05/28/17 05/29/17 17:28 21:59 00:30 Temperature 97.0 F L 97.3 F L Pulse Rate 67 61 Respiratory 18 18 16 Rate Blood Pressure 148/88 124/67 05/29/17 05/29/17 03:30 06:54 Temperature 99.0 F Pulse Rate 69 Respiratory 16 18 Rate Blood Pressure 145/86 Allergies/Adverse Reactions: Allergies Allergy/AdvReac Type Severity Reaction Status Date / Time No Known Allergies Allergy Verified 05/28/17 17:56 Date of last physical exam: 05/28/17 Concur with the findings of this exam: Yes - Substance Abuse/Tx History Hx Alcohol Use: Yes Hx Substance Use: Yes Substance Use Type: Cocaine ($20 daily), Heroin (10 bags daily, age at first use 28) Hx Substance Use Treatment: Yes ([facility], multiple detox.) Mental Status Exam - Mental Status Exam Alert and Oriented to: Time, Place, Person Cognitive Function: Grossly Intact Patient Appearance: Well Groomed Mood: Sad, Anxious Affect: Mood Congruent Patient Behavior: Crying Speech Pattern: Clear Voice Loudness: Normal Thought Process: Goal Oriented Thought Disorder: Not Present Hallucinations: Denies Suicidal Ideation: Denies Homicidal Ideation: Denies Insight/Judgement: Fair Sleep: Fair Appetite: Good Muscle strength/Tone: Normal Gait/Station: Normal Psychiatric Findings - Problem List ([place] 1, 2,3) (1) Opioid dependence Current Visit: Yes Status: Acute (2) Substance induced mood disorder Current Visit: Yes Status: Acute (3) Alcohol dependence Current Visit: Yes Status: Acute (4) Nicotine dependence Current Visit: Yes Status: Acute Qualifiers: Nicotine product type: cigarettes Substance use status: in withdrawal Qualified Code(s): F17.213 - Nicotine dependence, cigarettes, with withdrawal (5) Opioid dependence Current Visit: No Status: Acute Qualifiers: Substance use status: uncomplicated Qualified Code(s): F11.20 - Opioid dependence, uncomplicated - Initial Treatment Plan Initial Treatment Plan: psychoeducation, group and psychotherapy, monitor progress as needed.
[2017-05-29 10:51] LABS: HEMATOCRIT 41.4 % (35.4-49); HEMOGLOBIN 13.5 GM/dL (11.7-16.9); MCH 27.7 pg (25.7-33.7); MCHC 32.7 g/dl (32.0-35.9); MEAN CELL VOLUME 84.7 fl (80-96); MEAN PLT VOLUME 8.4 fl (7.5-11.1); PLATELET COUNT 238 K/MM3 (134-434); RBC 4.89 M/mm3 (4.00-5.60); RDW 14.5 % (11.9-15.9); WHITE BLOOD COUNT 6.4 K/mm3 (4.0-10.0)
--- NOTE | 2017-05-29 10:53 | EKG ---
Test Reason : Blood Pressure : / mmHG Vent. Rate : 061 BPM Atrial Rate : 061 BPM P-R Int : 152 ms QRS Dur : 106 ms QT Int : 430 ms P-R-T Axes : 050 028 043 degrees QTc Int : 432 ms NORMAL SINUS RHYTHM NORMAL ECG WHEN COMPARED WITH ECG OF 25-MAR-2017 23:33, NO SIGNIFICANT CHANGE WAS FOUND Confirmed by RUTH FISCHER MD ([id number]) on 05/29/2017 10:53:04 AM Referred By: Confirmed By:RUTH FISCHER MD
[2017-05-29 11:03] LABS: ALBUMIN 3.2 g/dl (3.4-5.0); ANION GAP 8 (8-16); BILIRUBIN,TOTAL 0.2 mg/dL (0.2-1.0); BLOOD UREA NITROGEN 13 mg/dL (7-18); CALCIUM 8.6 mg/dL (8.5-10.1); CHLORIDE 105 mmol/L (98-107); CO2 29 mmol/L (21-32); CREATININE 0.7 mg/dL (0.7-1.3); GLUCOSE,RANDOM 113 mg/dL (74-106); POTASSIUM 3.8 mmol/L (3.5-5.1); SGPT/ALT 31 U/L (12-78); SODIUM 142 mmol/L (136-145); TOT PROT 6.8 g/dl (6.4-8.2)
[2017-05-29 11:05] LABS: ALK PHOS 70 U/L (45-117); SGOT/AST 21 U/L (15-37)
[2017-05-29] MEDS: NICOTINE POLACRILEX 2 MG GUM BUC PRN ×3 (14:34→21:06)
[2017-05-29] MEDS: THIAMINE HCL 100 MG TABLET (FP) PO SCH (21:03)
[2017-05-29] MEDS: hydrOXYzine PAMOATE 50 MG CAPSULE (FP) PO PRN (21:05)
[2017-05-30] MEDS ORDERED: METHADONE HCL 40 MG DISPERSABLE TABLET PO SCH (06:00)
[2017-05-30] MEDS ORDERED: METHADONE HCL 10 MG TABLET ONE (06:00)
[2017-05-30] MEDS ORDERED: METHADONE HCL 40 MG DISPERSABLE TABLET ONE (06:01)
[2017-05-30] MEDS: METHADONE 80 MG, METHADONE 30 MG PO SCH (09:41)
[2017-05-30] MEDS: PRENATAL VITAMINS W/ FOLIC ACID TABLET (FP) PO SCH (09:41)
[2017-05-30] MEDS: NICOTINE POLACRILEX 2 MG GUM BUC PRN ×4 (09:43→21:27)
[2017-05-30] MEDS: NICOTINE 21 MG/24 HOURS TOPICAL PATCH TD SCH (09:43)
[2017-05-30] MEDS: P-EPHED 60MG/TRIPROLIDI 2.5MG TABLET PO PRN (18:16)
[2017-05-30] MEDS: MELATONIN 5 MG TABLETS PO PRN (21:26)
[2017-05-30] MEDS: THIAMINE HCL 100 MG TABLET (FP) PO SCH (21:26)
[2017-05-31] MEDS: P-EPHED 60MG/TRIPROLIDI 2.5MG TABLET PO PRN ×2 (02:49→13:25)
[2017-05-31] MEDS: NICOTINE POLACRILEX 2 MG GUM BUC PRN ×5 (02:50→20:06)
[2017-05-31] MEDS ORDERED: METHADONE HCL 10 MG TABLET ONE (05:26)
[2017-05-31] MEDS ORDERED: METHADONE HCL 40 MG DISPERSABLE TABLET ONE (05:26)
[2017-05-31] MEDS: METHADONE 80 MG, METHADONE 30 MG PO SCH (06:30)
[2017-05-31] MEDS: PRENATAL VITAMINS W/ FOLIC ACID TABLET (FP) PO SCH (11:12)
[2017-05-31] MEDS: NICOTINE 21 MG/24 HOURS TOPICAL PATCH TD SCH (11:12)
[2017-05-31] MEDS: MELATONIN 5 MG TABLETS PO PRN (21:14)
[2017-05-31] MEDS: THIAMINE HCL 100 MG TABLET (FP) PO SCH (21:14)
[2017-05-31] MEDS: hydrOXYzine PAMOATE 50 MG CAPSULE (FP) PO PRN (21:15)
[2017-06-01] MEDS ORDERED: METHADONE HCL 40 MG DISPERSABLE TABLET ONE (07:02)
[2017-06-01] MEDS: METHADONE 80 MG, METHADONE 30 MG PO SCH (07:02)
[2017-06-01] MEDS ORDERED: METHADONE HCL 10 MG TABLET ONE (07:02)
[2017-06-01] MEDS: NICOTINE 21 MG/24 HOURS TOPICAL PATCH TD SCH (10:28)
[2017-06-01] MEDS: PRENATAL VITAMINS W/ FOLIC ACID TABLET (FP) PO SCH (10:28)
[2017-06-01] MEDS: P-EPHED 60MG/TRIPROLIDI 2.5MG TABLET PO PRN ×2 (10:29→20:29)
[2017-06-01] MEDS: NICOTINE POLACRILEX 2 MG GUM BUC PRN ×2 (10:29→20:29)
[2017-06-01] MEDS: MELATONIN 5 MG TABLETS PO PRN (21:49)
[2017-06-01] MEDS: hydrOXYzine PAMOATE 50 MG CAPSULE (FP) PO PRN (21:49)
[2017-06-01] MEDS: THIAMINE HCL 100 MG TABLET (FP) PO SCH (21:49)
[2017-06-02] MEDS ORDERED: METHADONE HCL 40 MG DISPERSABLE TABLET ONE (05:17)
[2017-06-02] MEDS ORDERED: METHADONE HCL 10 MG TABLET ONE (05:17)
[2017-06-02] MEDS: METHADONE 80 MG, METHADONE 30 MG PO SCH (06:40)
[2017-06-02] MEDS: NICOTINE POLACRILEX 2 MG GUM BUC PRN ×3 (06:41→21:11)
[2017-06-02] MEDS: NICOTINE 21 MG/24 HOURS TOPICAL PATCH TD SCH (09:43)
[2017-06-02] MEDS: PRENATAL VITAMINS W/ FOLIC ACID TABLET (FP) PO SCH (09:43)
[2017-06-02] MEDS: THIAMINE HCL 100 MG TABLET (FP) PO SCH (21:11)
[2017-06-02] MEDS: hydrOXYzine PAMOATE 50 MG CAPSULE (FP) PO PRN (21:11)
[2017-06-02] MEDS: MELATONIN 5 MG TABLETS PO PRN (21:11)
[2017-06-03] MEDS ORDERED: METHADONE HCL 10 MG TABLET ONE (02:54)
[2017-06-03] MEDS ORDERED: METHADONE HCL 40 MG DISPERSABLE TABLET ONE (02:54)
[2017-06-03] MEDS: METHADONE 80 MG, METHADONE 30 MG PO SCH (06:45)
[2017-06-03] MEDS: NICOTINE POLACRILEX 2 MG GUM BUC PRN ×4 (07:25→21:20)
[2017-06-03] MEDS: PRENATAL VITAMINS W/ FOLIC ACID TABLET (FP) PO SCH (10:14)
[2017-06-03] MEDS: NICOTINE 21 MG/24 HOURS TOPICAL PATCH TD SCH (10:15)
[2017-06-03] MEDS: THIAMINE HCL 100 MG TABLET (FP) PO SCH (21:18)
[2017-06-03] MEDS: P-EPHED 60MG/TRIPROLIDI 2.5MG TABLET PO PRN (21:19)
[2017-06-03] MEDS: hydrOXYzine PAMOATE 50 MG CAPSULE (FP) PO PRN (21:20)
[2017-06-03] MEDS: MELATONIN 5 MG TABLETS PO PRN (21:20)
[2017-06-04] MEDS ORDERED: METHADONE HCL 40 MG DISPERSABLE TABLET ONE (03:23)
[2017-06-04] MEDS ORDERED: METHADONE HCL 10 MG TABLET ONE (03:23)
[2017-06-04] MEDS: METHADONE 80 MG, METHADONE 30 MG PO SCH (06:46)
[2017-06-04] MEDS: NICOTINE POLACRILEX 2 MG GUM BUC PRN ×3 (06:47→20:37)
[2017-06-04] MEDS: NICOTINE 21 MG/24 HOURS TOPICAL PATCH TD SCH (09:40)
[2017-06-04] MEDS: PRENATAL VITAMINS W/ FOLIC ACID TABLET (FP) PO SCH (09:40)
[2017-06-04] MEDS: P-EPHED 60MG/TRIPROLIDI 2.5MG TABLET PO PRN (14:07)
[2017-06-04] MEDS ORDERED: diphenhydrAMINE HCL 50 MG CAPSULE PO PRN (14:43)
--- NOTE | 2017-06-04 14:52 | PN ---
Psychiatric Progress Note Vital Signs: Vital Signs Period Temp Pulse Resp BP Sys/[place] Pulse Ox Last 24 Hr 98.6 F 86 16-18 119/68 Date of Session: 06/04/17 Chief Complaint:: "insomnia" HPI: Patient is addressing alcohol, opioid depenence. ROS: WNL Current Medications: Active Medications Generic Name Dose Route Start Last Admin Trade Name Freq PRN Reason Stop Dose Admin Acetaminophen 650 mg 05/28/17 20:07 Tylenol - PO Q4H PRN FEVER Al Hydroxide/Mg Hydroxide 30 ml 05/28/17 20:07 Mylanta Oral Suspension - PO Q6H PRN DYSPEPSIA Diphenhydramine HCl 50 mg 06/04/17 14:43 Benadryl - PO HS PRN INSOMNIA Eucalyptus/Menthol/Phenol/Sorbitol 1 each 05/28/17 20:07 Cepastat Lozenge - MM Q4H PRN SORE THROAT Guaifenesin 10 ml 05/28/17 20:07 Robitussin Dm - PO Q6H PRN COUGH Hydroxyzine Pamoate 50 mg 05/28/17 20:07 06/03/17 21:20 Vistaril - PO 50 mg Q4H PRN Administration AGITATION Ibuprofen 400 mg 05/28/17 20:07 06/02/17 19:21 Motrin - PO 400 mg Q6H PRN Administration Pain level 4-6 Loperamide HCl 4 mg 05/28/17 20:07 Imodium - PO Q6H PRN DIARRHEA Magnesium Citrate 300 ml 05/28/17 20:07 Citroma - PO Q48H PRN CONSTIPATION Magnesium Hydroxide 30 ml 05/28/17 20:07 Milk Of Magnesia - PO DAILY PRN CONSTIPATION Melatonin 5 mg 05/28/17 22:00 06/03/17 21:20 Melatonin PO 5 mg HS PRN Administration INSOMNIA Methadone HCl 80 mg/ Methadone 110 mg 05/30/17 06:00 06/04/17 06:46 HCl 30 mg PO 06/05/17 05:59 110 mg DAILY@0600 CRYSTAL Administration Nicotine 21 mg 05/29/17 10:00 06/04/17 09:40 Nicoderm Patch - TD Not Given DAILY CRYSTAL Nicotine Polacrilex 2 mg 05/28/17 20:07 06/04/17 14:07 Nicorette Gum - BUC 2 mg Q2H PRN Administration NICOTINE REPLACEMENT RX Multivit/Folic Acid/Iron 1 tab 05/29/17 10:00 06/04/17 09:40 Vitamins (Sjr) - PO Not Given DAILY CRYSTAL Pseudoephedrine/Triprolidine 1 combo 05/28/17 20:07 06/04/17 14:07 Actifed - PO 1 combo TID PRN Administration NASAL CONGESTION Thiamine HCl 100 mg 05/28/17 22:00 06/03/17 21:18 Vitamin B1 - PO 100 mg HS CRYSTAL Administration Medication(s) Change(s): add Benadryl 50 mg po prn for insomnia Current Side Effect: No Lab tests ordered: No Lab tests reviewed: Yes Provider note:: Patient seems to be adjusted to the unitt, he is visible and attends groups, he reports he has a difficulty to fall and maintain sleep, states that Benadryl effective, then patient asked to call his mother and take the letter to his "fiance who is in admission", patient was reminded that he can use the phone in [facility] during certain hours and jingle writer can't deliver any letters we have a mail worker for this. Will add benadyl 50 mg po hs, continue to monitor progress. Total face to face time:: 15 Mental Status Exam - Mental Status Exam Alert and Oriented to: Time, Place, Person Cognitive Function: Good Patient Appearance: Well Groomed Mood: Hopeful Affect: Appropriate, Mood Congruent Patient Behavior: Appropriate, Cooperative Speech Pattern: Clear, Appropriate Voice Loudness: Normal Thought Process: Intact, Goal Oriented Thought Disorder: Not Present Hallucinations: Denies Suicidal Ideation: Denies Homicidal Ideation: Denies Insight/Judgement: Fair Sleep: Fair Appetite: Fair Muscle strength/Tone: Normal Gait/Station: Normal Psychiatric Treatment Plan - Problem List (1) Substance induced mood disorder Current Visit: Yes (2) Alcohol dependence Current Visit: Yes (3) Nicotine dependence Current Visit: Yes Qualifiers: Nicotine product type: cigarettes Substance use status: in withdrawal Qualified Code(s): F17.213 - Nicotine dependence, cigarettes, with withdrawal (4) Opioid dependence Current Visit: No Qualifiers: Substance use status: uncomplicated Qualified Code(s): F11.20 - Opioid dependence, uncomplicated
[2017-06-04] MEDS: hydrOXYzine PAMOATE 50 MG CAPSULE (FP) PO PRN (21:11)
[2017-06-04] MEDS: THIAMINE HCL 100 MG TABLET (FP) PO SCH (21:11)
[2017-06-04] MEDS: MELATONIN 5 MG TABLETS PO PRN (21:11)
[2017-06-05] MEDS ORDERED: METHADONE HCL 40 MG DISPERSABLE TABLET ONE (03:19)
[2017-06-05] MEDS ORDERED: METHADONE HCL 10 MG TABLET ONE (03:19)
[2017-06-05] MEDS ORDERED: METHADONE HCL 10 MG TABLET PO SCH (06:45)
[2017-06-05] MEDS: METHADONE 80 MG, METHADONE 30 MG PO SCH (10:11)
[2017-06-05] MEDS: PRENATAL VITAMINS W/ FOLIC ACID TABLET (FP) PO SCH (10:15)
[2017-06-05] MEDS: NICOTINE 21 MG/24 HOURS TOPICAL PATCH TD SCH (10:15)
[2017-06-05] MEDS: NICOTINE POLACRILEX 2 MG GUM BUC PRN ×2 (17:02→21:13)
[2017-06-05] MEDS: THIAMINE HCL 100 MG TABLET (FP) PO SCH (21:11)
[2017-06-05] MEDS: MELATONIN 5 MG TABLETS PO PRN (21:12)
[2017-06-05] MEDS: hydrOXYzine PAMOATE 50 MG CAPSULE (FP) PO PRN (21:12)
[2017-06-06] MEDS ORDERED: METHADONE HCL 40 MG DISPERSABLE TABLET ONE (03:20)
[2017-06-06] MEDS ORDERED: METHADONE HCL 10 MG TABLET ONE (03:20)
[2017-06-06] MEDS: METHADONE 80 MG, METHADONE 30 MG PO SCH (06:42)
[2017-06-06] MEDS: NICOTINE POLACRILEX 2 MG GUM BUC PRN ×3 (06:45→21:42)
[2017-06-06] MEDS: NICOTINE 21 MG/24 HOURS TOPICAL PATCH TD SCH (09:54)
[2017-06-06] MEDS: PRENATAL VITAMINS W/ FOLIC ACID TABLET (FP) PO SCH (09:54)
[2017-06-06] MEDS: THIAMINE HCL 100 MG TABLET (FP) PO SCH (21:41)
[2017-06-06] MEDS: MELATONIN 5 MG TABLETS PO PRN (21:41)
[2017-06-06] MEDS: hydrOXYzine PAMOATE 50 MG CAPSULE (FP) PO PRN (21:41)
[2017-06-07] MEDS ORDERED: METHADONE HCL 40 MG DISPERSABLE TABLET ONE (03:19)
[2017-06-07] MEDS ORDERED: METHADONE HCL 10 MG TABLET ONE (03:19)
[2017-06-07] MEDS: NICOTINE 21 MG/24 HOURS TOPICAL PATCH TD SCH (09:36)
[2017-06-07] MEDS: METHADONE 80 MG, METHADONE 30 MG PO SCH (09:36)
[2017-06-07] MEDS: PRENATAL VITAMINS W/ FOLIC ACID TABLET (FP) PO SCH (09:36)
[2017-06-07] MEDS: NICOTINE POLACRILEX 2 MG GUM BUC PRN ×4 (12:29→21:22)
[2017-06-07] MEDS: THIAMINE HCL 100 MG TABLET (FP) PO SCH (21:22)
[2017-06-07] MEDS: hydrOXYzine PAMOATE 50 MG CAPSULE (FP) PO PRN (21:22)
[2017-06-07] MEDS: MELATONIN 5 MG TABLETS PO PRN (21:22)
[2017-06-08] MEDS ORDERED: METHADONE HCL 40 MG DISPERSABLE TABLET ONE (08:44)
[2017-06-08] MEDS ORDERED: METHADONE HCL 10 MG TABLET ONE (08:44)
[2017-06-08] MEDS: METHADONE 80 MG, METHADONE 30 MG PO SCH (09:41)
[2017-06-08] MEDS: PRENATAL VITAMINS W/ FOLIC ACID TABLET (FP) PO SCH (09:41)
[2017-06-08] MEDS: NICOTINE 21 MG/24 HOURS TOPICAL PATCH TD SCH (09:43)
[2017-06-08] MEDS: NICOTINE POLACRILEX 2 MG GUM BUC PRN ×4 (09:43→21:08)
[2017-06-08] MEDS ORDERED: METHADONE HCL 40 MG DISPERSABLE TABLET PO SCH (10:00)
[2017-06-08] MEDS: hydrOXYzine PAMOATE 50 MG CAPSULE (FP) PO PRN (21:06)
[2017-06-08] MEDS: MELATONIN 5 MG TABLETS PO PRN (21:06)
[2017-06-08] MEDS: THIAMINE HCL 100 MG TABLET (FP) PO SCH (21:06)
[2017-06-09] MEDS ORDERED: METHADONE HCL 10 MG TABLET ONE (08:46)
[2017-06-09] MEDS ORDERED: METHADONE HCL 40 MG DISPERSABLE TABLET ONE (08:46)
[2017-06-09] MEDS: METHADONE 80 MG, METHADONE 30 MG PO SCH (09:45)
[2017-06-09] MEDS: PRENATAL VITAMINS W/ FOLIC ACID TABLET (FP) PO SCH (09:46)
[2017-06-09] MEDS: NICOTINE 21 MG/24 HOURS TOPICAL PATCH TD SCH (09:47)
[2017-06-09] MEDS: NICOTINE POLACRILEX 2 MG GUM BUC PRN ×4 (09:47→19:40)
[2017-06-09] MEDS: MELATONIN 5 MG TABLETS PO PRN (21:06)
[2017-06-09] MEDS: hydrOXYzine PAMOATE 50 MG CAPSULE (FP) PO PRN (21:06)
[2017-06-09] MEDS: THIAMINE HCL 100 MG TABLET (FP) PO SCH (21:06)
[2017-06-10 06:52] VITALS: TEMP 97.8
[2017-06-10] MEDS ORDERED: METHADONE HCL 10 MG TABLET ONE (08:40)
[2017-06-10] MEDS ORDERED: METHADONE HCL 40 MG DISPERSABLE TABLET ONE (08:41)
[2017-06-10] MEDS: PRENATAL VITAMINS W/ FOLIC ACID TABLET (FP) PO SCH (10:10)
[2017-06-10] MEDS: METHADONE 80 MG, METHADONE 30 MG PO SCH (10:11)
[2017-06-10] MEDS: NICOTINE 21 MG/24 HOURS TOPICAL PATCH TD SCH (10:11)
[2017-06-10] MEDS: NICOTINE POLACRILEX 2 MG GUM BUC PRN ×3 (11:39→20:45)
--- NOTE | 2017-06-10 12:03 | PN ---
Psychiatric Progress Note Vital Signs: Vital Signs Period Temp Pulse Resp BP Sys/[place] Pulse Ox Last 24 Hr 97.8 F 80 16-18 94/61 Date of Session: 06/10/17 Chief Complaint:: "depressed" HPI: Patient is addressing alcohol, opioid depenence. ROS: WNL Current Medications: Active Medications Generic Name Dose Route Start Last Admin Trade Name Freq PRN Reason Stop Dose Admin Acetaminophen 650 mg 05/28/17 20:07 Tylenol - PO Q4H PRN FEVER Al Hydroxide/Mg Hydroxide 30 ml 05/28/17 20:07 Mylanta Oral Suspension - PO Q6H PRN DYSPEPSIA Diphenhydramine HCl 50 mg 06/04/17 14:43 Benadryl - PO HS PRN INSOMNIA Eucalyptus/Menthol/Phenol/Sorbitol 1 each 05/28/17 20:07 Cepastat Lozenge - MM Q4H PRN SORE THROAT Guaifenesin 10 ml 05/28/17 20:07 Robitussin Dm - PO Q6H PRN COUGH Hydroxyzine Pamoate 50 mg 05/28/17 20:07 06/09/17 21:06 Vistaril - PO 50 mg Q4H PRN Administration AGITATION Ibuprofen 400 mg 05/28/17 20:07 06/02/17 19:21 Motrin - PO 400 mg Q6H PRN Administration Pain level 4-6 Loperamide HCl 4 mg 05/28/17 20:07 Imodium - PO Q6H PRN DIARRHEA Magnesium Citrate 300 ml 05/28/17 20:07 Citroma - PO Q48H PRN CONSTIPATION Magnesium Hydroxide 30 ml 05/28/17 20:07 Milk Of Magnesia - PO DAILY PRN CONSTIPATION Melatonin 5 mg 05/28/17 22:00 06/09/17 21:06 Melatonin PO 5 mg HS PRN Administration INSOMNIA Methadone HCl 80 mg/ Methadone 110 mg 06/08/17 10:00 06/10/17 10:11 HCl 30 mg PO 06/14/17 09:59 110 mg DAILY CRYSTAL Administration Nicotine 21 mg 05/29/17 10:00 06/10/17 10:11 Nicoderm Patch - TD Not Given DAILY CRYSTAL Nicotine Polacrilex 2 mg 05/28/17 20:07 06/10/17 11:39 Nicorette Gum - BUC 2 mg Q2H PRN Administration NICOTINE REPLACEMENT RX Multivit/Folic Acid/Iron 1 tab 05/29/17 10:00 06/10/17 10:10 Vitamins (Sjr) - PO 1 tab DAILY CRYSTAL Administration Pseudoephedrine/Triprolidine 1 combo 05/28/17 20:07 06/04/17 14:07 Actifed - PO 1 combo TID PRN Administration NASAL CONGESTION Thiamine HCl 100 mg 05/28/17 22:00 06/09/17 21:06 Vitamin B1 - PO 100 mg HS CRYSTAL Administration Current Side Effect: No Lab tests ordered: No Lab tests reviewed: Yes Provider note:: Patient was seen today due to c/o anxiety, depressed mood, having cryaing speels, reports was diagnosed with "manic-depresseion" and treated in the past with Prozac and Buspar, states treatment was effective. Discussed indications and properties each of medication, patient indicates understanding . Will add Buspar 5 mg po tid and Prozac 10 mg po daily. Will continue to monitor progress. Total face to face time:: 35 Mental Status Exam - Mental Status Exam Alert and Oriented to: Time, Place, Person Cognitive Function: Grossly Intact Patient Appearance: Well Groomed Mood: Depressed, Sad, Anxious Affect: Mood Congruent Patient Behavior: Crying Speech Pattern: Clear, Appropriate Voice Loudness: Normal Thought Process: Goal Oriented Thought Disorder: Not Present Hallucinations: Denies Suicidal Ideation: Denies Homicidal Ideation: Denies Insight/Judgement: Fair Sleep: Fair Appetite: Fair Muscle strength/Tone: Normal Gait/Station: Normal Psychiatric Treatment Plan - Problem List (1) Substance induced mood disorder Current Visit: Yes (2) Alcohol dependence Current Visit: Yes (3) Nicotine dependence Current Visit: Yes Qualifiers: Nicotine product type: cigarettes Substance use status: in withdrawal Qualified Code(s): F17.213 - Nicotine dependence, cigarettes, with withdrawal (4) Opioid dependence Current Visit: No Qualifiers: Substance use status: uncomplicated Qualified Code(s): F11.20 - Opioid dependence, uncomplicated (5) Mood disorder Current Visit: Yes
[2017-06-10] MEDS: THIAMINE HCL 100 MG TABLET (FP) PO SCH (21:20)
[2017-06-10] MEDS: MELATONIN 5 MG TABLETS PO PRN (21:20)
[2017-06-10] MEDS: hydrOXYzine PAMOATE 50 MG CAPSULE (FP) PO PRN (21:20)
[2017-06-11 06:39] VITALS: BP 110/76; PULSE 78
[2017-06-11] MEDS ORDERED: METHADONE HCL 10 MG TABLET ONE (08:58)
[2017-06-11] MEDS ORDERED: METHADONE HCL 40 MG DISPERSABLE TABLET ONE (08:59)
[2017-06-11] MEDS: METHADONE 80 MG, METHADONE 30 MG PO SCH (09:53)
[2017-06-11] MEDS: PRENATAL VITAMINS W/ FOLIC ACID TABLET (FP) PO SCH (09:53)
[2017-06-11] MEDS: NICOTINE 21 MG/24 HOURS TOPICAL PATCH TD SCH (09:57)
[2017-06-11] MEDS ORDERED: FLUoxetine HCL 10 MG CAPSULE (FP) PO SCH (10:00)
--- NOTE | 2017-06-11 12:56 | PN ---
Psychiatric Progress Note Vital Signs: Vital Signs Period Temp Pulse Resp BP Sys/[place] Pulse Ox Last 24 Hr 97.8 F 78 16-19 110/76 Date of Session: 06/11/17 Chief Complaint:: discharge visit HPI: Patient has addressed alcohol, opioid, nicotine dependence comorbid with Mood siorder, substance induced anxiety disorder. ROS: WNL Current Side Effect: No Lab tests ordered: No Lab tests reviewed: Yes Provider note:: Patient has completed today his treatment and met his goals, will continue to address his issues at [facility]. He gained insights into his addiction, and focused on recognition of negative conseqiences relapse would have over major life areas, including physical and mental health. Patient started treatment with Buspar and Prozac today, he will f/u with a psychiatrist , scripts x 30 days provided, patient apperas stable for discharge today. Total face to face time:: 25 Mental Status Exam - Mental Status Exam Alert and Oriented to: Time, Place, Person Cognitive Function: Good Patient Appearance: Well Groomed Mood: Hopeful Affect: Appropriate, Mood Congruent Patient Behavior: Appropriate, Cooperative Speech Pattern: Clear, Appropriate Voice Loudness: Normal Thought Process: Intact, Goal Oriented Thought Disorder: Not Present Hallucinations: Denies Suicidal Ideation: Denies Homicidal Ideation: Denies Insight/Judgement: Fair Sleep: Fair Appetite: Good Muscle strength/Tone: Normal Gait/Station: Normal Psychiatric Treatment Plan - Problem List (3) Nicotine dependence Qualifiers: Nicotine product type: cigarettes Substance use status: in withdrawal Qualified Code(s): F17.213 - Nicotine dependence, cigarettes, with withdrawal (4) Opioid dependence Qualifiers: Substance use status: uncomplicated Qualified Code(s): F11.20 - Opioid dependence, uncomplicated
[2017-06-11] MEDS ORDERED: busPIRone HCL 5 MG TABLET PO SCH (14:00)
== END 2017-06-11 10:55 | disposition home or self-care (01) | DRG 772 ==
LOC: YASAS 15:23 → Y5N 19:00
PROVIDERS: ADMIT Psychiatry & Neurology Psychiatry; ATTEND Psychiatry & Neurology Psychiatry
PROC: HZ42ZZZ Group Counseling for Substance Abuse Treatment, Cognitive-Behavioral (ICD-10-PCS; principal; 2017-05-28)
DX: F11.20 Opioid dependence, uncomplicated (principal); F10.20 Alcohol dependence, uncomplicated; F17.210 Nicotine dependence, cigarettes, uncomplicated; F19.280 Other psychoactive substance dependence with psychoactive substance-induced anxiety disorder; F39 Unspecified mood [affective] disorder; F32.9 Major depressive disorder, single episode, unspecified; G47.9 Sleep disorder, unspecified
CPT/HCPCS: 36415; 80053; 81003; 85027; 86593; 93005; 93010

== ENCOUNTER 2019-01-09 08:29 | Inpatient (IN) | payer OTHER ==
[2019-01-09 09:00] VITALS: BMI 32.4
--- NOTE | 2019-01-09 09:33 | HP ---
COWS - Scale Resting Pulse: 0= [place] 80 or Below Sweatin=Flushed/Facial Moisture Restless Observation: 3= Extraneous Movement Pupil Size: 0= Normal to Room Light Bone or Joint Aches: 0= None Runny Nose/ Eye Tearin= Runny Nose/Eyes GI Upset > 30mins: 2= Nausea/Diarrhea Tremor Observation: 0= None Yawning Observation: 0= None Anxiety or Irritability: 4=Extreme Anxiety Goose Flesh Skin: 0=Smooth Skin COWS Score: 13 CIWA Score Nausea/Vomitin Muscle Tremors: 4-Moderate,w/Arms Extend Anxiety: 4-Mod. Anxious/Guarded Agitation: 2 Paroxysmal Sweats: 2 Orientation: 0-Oriented Tacttile Disturbances: 0-None Auditory Disturbances: 0-None Visual Disturbances: 0-None Headache: 0-None Present CIWA-Ar Total Score: 14 - Admission Criteria [facility]ASAS Guidelines: Admission for Medically Managed Detox: Requires at least one of the followin. CIWA greater than 12 2. Seizures within the past 24 hours 3. Delirium tremens within the past 24 hours 4. Hallucinations within the past 24 hours 5. Acute intervention needed for co occurring medical disorder 6. Acute intervention needed for co occurring psychiatric disorder 7. Severe withdrawal that cannot be handled at a lower level of care (continued vomiting, continued diarrhea, abnormal vital signs) requiring intravenous medication and/or fluids 8. Admitting History and Physical - Smoking History Smoking history: Current every day smoker Have you smoked in the past 12 months: Yes Aproximately how many cigarettes per day: 20 - Alcohol/Substance Use Hx Alcohol Use: Yes Admission [facility] Allergies/Adverse Reactions: Allergies Allergy/AdvReac Type Severity Reaction Status Date / Time No Known Allergies Allergy Verified 01/09/19 08:50 History of Present Illness: This report was requested by: Mis Martinez | Reference #: [id number] Others' Prescriptions Patient Name: Stevenson Doll Date: 1975 Address: [address] [place] [id number] Sex: Male Rx Written Rx Dispensed Drug Quantity Days Supply Prescriber Name 09/10/2018 09/10/2018 chlordiazepoxide 25 mg capsule 18 3 Maritza Cuadra Patient Name: Stevenson Doll Date: 1975 Address: [address] [place] [id number] Sex: Male Rx Written Rx Dispensed Drug Quantity Days Supply Prescriber Name 08/14/2018 08/14/2018 buprenorphine 8 mg tablet sl 60 20 Francheska Hill MD 07/28/2018 08/05/2018 buprenorphine 8 mg tablet sl 16 5 Francheska Hill MD 06/27/2018 07/17/2018 buprenorphine 8 mg tablet sl 60 20 Francheska Hill MD 06/17/2018 06/17/2018 buprenorphine 8 mg tablet sl 24 8 Francheska Hill MD 05/29/2018 05/29/2018 buprenorphine 8 mg tablet sl 60 20 Sanjeev Herring MD 05/20/2018 05/21/2018 buprenorphine 8 mg tablet sl 24 8 Sanjeev Herring MD 04/30/2018 04/30/2018 buprenorphine 8 mg tablet sl 60 30 Sanjeev Herring MD 03/26/2018 03/26/2018 buprenorphine 8 mg tablet sl 14 7 Sanjeev Herring MD Patient Name: Stevenson Doll Date: 1975 Address: [address] [place] [id number] Sex: Male Rx Written Rx Dispensed Drug Quantity Days Supply Prescriber Name 04/02/2018 04/02/2018 buprenorphine 8 mg tablet sl 46 23 Raulito Jean-Baptiste MD 02/24/2018 02/27/2018 buprenorphine 8 mg tablet sl 28 14 Francheska Hill MD 02/24/2018 02/24/2018 dextroamp-amphet er 5 mg cap 14 7 Francheska Hill MD 02/07/2018 02/07/2018 buprenorphine 8 mg tablet sl 30 15 Rashid Bowser M 02/07/2018 02/07/2018 dextroamp-amphetamine 5 mg tab 30 15 Mckenzie Alvarez 01/14/2018 01/15/2018 suboxone 8 mg-2 mg sl film 30 15 Sanjeev Herring MD pt here requesting detox from heroin use , claims 18 bags/day via inhalation denies IV use . Pt is not a reliable historian , claims he has not been at this facility " in years " despite records showing detox and rehab in 2018 , also states he used to be in a Suboxone program 1 yr ago at [facility] despite recent rx for Suboxone July 2018 , when questioned admits he went to [facility] outpt program , latest there reportedly July 2018 . denies current legal issues . Latest heroin use yesterday . etoh - 2 pints vodka /day , latest use yesterday , denies seizures , + blackouts , + occasional tremors , denies falls while intoxicated . cocaine - 1 gr/day denies IV use . tobacco : 1 ppd denies benzo use denies fentanyl use denies methadone use denies recent detox . PMhx /PShx/ Psych : denies Exam Limitations: No Limitations - Ebola screening Have you traveled outside of the country in the last 21 days: No Have you had contact with anyone from an Ebola affected area: No Do you have a fever: No - Review of Systems Constitutional: See HPI EENT: reports: See HPI Respiratory: reports: No Symptoms reported Cardiac: reports: No Symptoms Reported GI: reports: See HPI : reports: No Symptoms Reported Musculoskeletal: reports: No Symptoms Reported Integumentary: reports: No Symptoms Reported Neuro: reports: No Symptoms reported Endocrine: reports: No Symptoms Reported Psychiatric: reports: Orientated x3, Agitated, Anxious Patient History - Patient Medical History Hx Anemia: No Hx Asthma: No Hx Chronic Obstructive Pulmonary Disease (COPD): No Hx Cancer: No Hx Cardiac Disorders: No Hx Congestive Heart Failure: No Hx Hypertension: No Hx Hypercholesterolemia: No Hx Pacemaker: No HX Cerebrovascular Accident: No Hx Seizures: No Hx Dementia: No Hx Diabetes: No Hx Gastrointestinal Disorders: No Hx Liver Disease: No Hx Genitourinary Disorders: No Hx Sexually Transmitted Disorders: No Hx Renal Disease (ESRD): No Hx Thyroid Disease: No Hx Human Immunodeficiency Virus (HIV): No (Negative 2016) Hx Hepatitis C: No (Negative 2017) Hx Depression: Yes Hx Suicide Attempt: No Hx Bipolar Disorder: No Hx Schizophrenia: No - Patient Surgical History Past Surgical History: No Hx Neurologic Surgery: No Hx Cataract Extraction: No Hx Cardiac Surgery: No Hx Lung Surgery: No Hx Breast Surgery: No Hx Breast Biopsy: No Hx Abdominal Surgery: No Hx Appendectomy: No Hx Cholecystectomy: No Hx Genitourinary Surgery: No Hx Section: No Hx Orthopedic Surgery: No Anesthesia Reaction: No - Smoking Cessation Smoking history: Current every day smoker Have you smoked in the past 12 months: Yes Aproximately how many cigarettes per day: 20 Hx Chewing Tobacco Use: No Initiated information on smoking cessation: Yes 'Breaking Loose' booklet given: 01/09/19 - Substances abused Alcohol Substance route: Oral Frequency: Daily Amount used: 2 PINTS OF VODKA Age of first use: 15 Date of last use: 01/08/19 Heroin Substance route: Inhalation Frequency: Daily Amount used: 18 BAGS Age of first use: 35 Date of last use: 01/08/19 Admission Physical Exam BHS - Vital Signs Vital Signs: Vital Signs - 24 hr 01/09/19 08:51 Temperature 97.7 F Pulse Rate 68 Respiratory 18 Rate Blood Pressure 138/73 - Physical General Appearance: Yes: Mild Distress, Irritable, Anxious HEENTM: Yes: EOMI, Hearing grossly Normal, Normocephalic, Muffled/Hoarse Voice Respiratory: Yes: Chest Non-Tender, Lungs Clear, Normal Breath Sounds, No Respiratory Distress, No Accessory Muscle Use Neck: Yes: No masses,lesions,Nodules, Trachea in good position Cardiology: Yes: Regular Rhythm, Regular Rate, S1, S2 Abdominal: Yes: Non Tender, Soft Musculoskeletal: Yes: Gait Steady Extremities: Yes: Normal Range of Motion, Other (right index finger missing distal phalanx , reports childhood injury) Neurological: Yes: Fully Oriented, Alert, Motor Strength 5/5 Integumentary: Yes: Warm, Other (superficial excoriations kelvin LE pretibially ) - Diagnostic (1) Alcohol dependence Current Visit: Yes Status: Chronic Qualifiers: Substance use status: uncomplicated Qualified Code(s): F10.20 - Alcohol dependence, uncomplicated (2) Cocaine dependence, uncomplicated Current Visit: Yes Status: Chronic (3) Nicotine dependence Current Visit: Yes Status: Chronic Qualifiers: Nicotine product type: cigarettes (4) Opioid dependence Current Visit: Yes Status: Chronic Qualifiers: Substance use status: uncomplicated Qualified Code(s): F11.20 - Opioid dependence, uncomplicated Breathalyzer - Breathalyzer Breathalyzer: 0 Urine Drug Screen - Test Device Lot number: [id number] Expiration date: 09/17/20 - Control Is test valid?: Yes - Results Drug screen NEGATIVE: No Urine drug screen results: JEREMY-Cocaine, FEN-Fentanyl, MOP-Opiates, MTD-Methadone , BZO-Benzodiazepines Inpatient Rehab Admission - Rehab Decision to Admit Inpatient rehab admission?: No
[2019-01-09] MEDS ORDERED: MELATONIN 5 MG TABLETS PO PRN (10:05)
[2019-01-09] MEDS ORDERED: MENTHOL/PHENOL 1 EACH UD MM PRN (10:05)
[2019-01-09] MEDS ORDERED: IBUPROFEN 400 MG TABLET (FP) PO PRN (10:05)
[2019-01-09] MEDS ORDERED: MAG HYDROX/AL HYDROX/SIMETH 30 ML UNIT-DOSE CUP PO PRN (10:05)
[2019-01-09] MEDS ORDERED: MAGNESIUM CITRATE 300 ML BOTTLE PO PRN (10:05)
[2019-01-09] MEDS ORDERED: BISMUTH SUBSALICYLATE 262 MG/15 ML BTL PO PRN (10:05)
[2019-01-09] MEDS ORDERED: ACETAMINOPHEN 325 MG TABLET (FP) PO PRN ×2 (10:05)
[2019-01-09] MEDS ORDERED: MAGNESIUM HYDROX 2400MG/30ML ORAL SUSPENSION 30 ML CUP PO PRN (10:05)
[2019-01-09] MEDS ORDERED: METHADONE HCL 10 MG TABLET (FOR DETOX USE ONLY) PO ONE (10:23)
[2019-01-09] MEDS ORDERED: cloNIDine HCL 0.1 MG TABLET PO PRN (10:23)
[2019-01-09] MEDS: METHOCARBAMOL 500 MG TABLET PO PRN ×2 (11:45→19:41)
--- NOTE | 2019-01-09 12:17 | EKG ---
Test Reason : Blood Pressure : / mmHG Vent. Rate : 054 BPM Atrial Rate : 054 BPM P-R Int : 154 ms QRS Dur : 110 ms QT Int : 442 ms P-R-T Axes : 044 002 007 degrees QTc Int : 419 ms SINUS BRADYCARDIA NON-SPECIFIC INTRA-VENTRICULAR CONDUCTION DELAY Confirmed by AYDEN GARCIA MD ([id number]) on 01/09/2019 12:16:52 PM Referred By: Confirmed By:AYDEN GARCIA MD
[2019-01-09] MEDS: diazePAM 5 MG TABLET PO SCH ×2 (13:28→22:09)
[2019-01-09 15:03] LABS: HEMATOCRIT 39.6 % (35.4-49); HEMOGLOBIN 13.1 GM/dL (11.7-16.9); MCH 28.5 pg (25.7-33.7); MCHC 33.2 g/dl (32.0-35.9); MEAN CELL VOLUME 85.9 fl (80-96); MEAN PLT VOLUME 8.4 fl (7.5-11.1); PLATELET COUNT 323 K/MM3 (134-434); RBC 4.61 M/mm3 (4.00-5.60); RDW 13.2 % (11.9-15.9); WHITE BLOOD COUNT 6.5 K/mm3 (4.0-10.0)
[2019-01-09 15:17] LABS: ALBUMIN 3.8 g/dl (3.4-5.0); BILIRUBIN,TOTAL 0.3 mg/dL (0.2-1); BLOOD UREA NITROGEN 16.1 mg/dL (7-18); CREATININE 0.7 mg/dL (0.55-1.3); POTASSIUM 4.1 mmol/L (3.5-5.1); TOT PROT 6.9 g/dl (6.4-8.2)
[2019-01-09] MEDS: diazePAM 5 MG TABLET PO PRN ×2 (16:38→20:40)
[2019-01-09] MEDS: hydrOXYzine PAMOATE 25 MG CAPSULE (FP) PO PRN (19:41)
[2019-01-09] MEDS: THIAMINE HCL 100 MG TABLET (FP) PO SCH (22:09)
[2019-01-10] MEDS: diazePAM 5 MG TABLET PO SCH ×3 (05:21→22:19)
[2019-01-10] MEDS ORDERED: METHADONE (DETOX) 20 MG, METHADONE (DETOX) 5 MG PO ONE (10:00)
[2019-01-10] MEDS ORDERED: METHADONE HCL 5 MG TABLET (FOR DETOX USE ONLY) ONE (10:08)
[2019-01-10] MEDS ORDERED: METHADONE HCL 10 MG TABLET (FOR DETOX USE ONLY) ONE (10:08)
[2019-01-10] MEDS: PRENATAL VITAMINS W/ FOLIC ACID TABLET (FP) PO SCH (10:08)
[2019-01-10] MEDS: diazePAM 5 MG TABLET PO PRN ×2 (10:10→18:36)
--- NOTE | 2019-01-10 11:43 | PN ---
S CIWA - CIWA Score Nausea/Vomitin-No Nausea/No Vomiting Muscle Tremors: 2 Anxiety: 3 Agitation: 0-Normal Activity Paroxysmal Sweats: 3 Orientation: 0-Oriented Tacttile Disturbances: 1-Very Mild Itch/Numbness Auditory Disturbances: 0-None Visual Disturbances: 0-None Headache: 2-Mild CIWA-Ar Total Score: 11 BHS COWS - Scale Resting Pulse: 0= [place] 80 or Below Sweatin= Beads of Sweat on Face Restless Observation: 1= Difficult to Sit Still Pupil Size: 0= Normal to Room Light Bone or Joint Aches: 2= Severe Diffuse Aches Runny Nose/ Eye Tearin= None GI Upset > 30mins: 0= None Tremor Observation of Outstretched Hands: 2= Slight Tremor Visible Yawning Observation: 1= 1-2x During Session Anxiety or Irritability: 2=Irritable/Anxious Goose Flesh Skin: 0=Smooth Skin COWS Score: 11 S Progress Note (SOAP) Subjective: c/o anxiety, headache, sweats, muscle aches, and shakes. Objective: 01/10/19 11:44 Vital Signs 01/10/19 01/10/19 06:36 09:17 Temperature 96.7 F L 96.9 F L Pulse Rate 72 71 Respiratory 18 18 Rate Blood Pressure 144/93 145/95 Laboratory Last Values WBC 6.5 K/mm3 (4.0-10.0) 01/09/19 10:45 RBC 4.61 M/mm3 (4.00-5.60) 01/09/19 10:45 Hgb 13.1 GM/dL (11.7-16.9) 01/09/19 10:45 Hct 39.6 % (35.4-49) 01/09/19 10:45 MCV 85.9 fl (80-96) 01/09/19 10:45 MCH 28.5 pg (25.7-33.7) 01/09/19 10:45 MCHC 33.2 g/dl (32.0-35.9) 01/09/19 10:45 RDW 13.2 % (11.9-15.9) 01/09/19 10:45 Plt Count 323 K/MM3 (134-434) D 01/09/19 10:45 MPV 8.4 fl (7.5-11.1) 01/09/19 10:45 Sodium 136 mmol/L (136-145) 01/09/19 10:45 Potassium 4.1 mmol/L (3.5-5.1) 01/09/19 10:45 Chloride 103 mmol/L (98-107) 01/09/19 10:45 Carbon Dioxide 28 mmol/L (21-32) 01/09/19 10:45 Anion Gap 5 MMOL/L (8-16) L 01/09/19 10:45 BUN 16.1 mg/dL (7-18) 01/09/19 10:45 Creatinine 0.7 mg/dL (0.55-1.3) 01/09/19 10:45 Est GFR (CKD-EPI)AfAm 134.91 01/09/19 10:45 Est GFR (CKD-EPI)NonAf 116.40 01/09/19 10:45 Random Glucose 84 mg/dL (74-106) 01/09/19 10:45 Calcium 9.0 mg/dL (8.5-10.1) 01/09/19 10:45 Total Bilirubin 0.3 mg/dL (0.2-1) 01/09/19 10:45 AST 19 U/L (15-37) 01/09/19 10:45 ALT 21 U/L (13-61) 01/09/19 10:45 Alkaline Phosphatase 57 U/L (45-117) 01/09/19 10:45 Total Protein 6.9 g/dl (6.4-8.2) 01/09/19 10:45 Albumin 3.8 g/dl (3.4-5.0) 01/09/19 10:45 RPR Titer Nonreactive (NONREACTIVE) 01/09/19 10:45 Labs noted. Assessment: 01/10/19 11:44 AOX3, in no acute respiratory distress. Full ROM, ambulating in the unit. Withdrawal symptoms. Plan: continue detox.
[2019-01-10] MEDS ORDERED: FLU VACCINE QUAD 60 MCG/0.5 ML (MDV 19-20) IM ONE (12:00)
[2019-01-10] MEDS: METHOCARBAMOL 500 MG TABLET PO PRN ×2 (14:30→22:20)
[2019-01-10] MEDS: hydrOXYzine PAMOATE 25 MG CAPSULE (FP) PO PRN ×2 (15:59→22:19)
[2019-01-10] MEDS: THIAMINE HCL 100 MG TABLET (FP) PO SCH (22:19)
[2019-01-11] MEDS: diazePAM 5 MG TABLET PO PRN ×3 (02:53→22:38)
[2019-01-11] MEDS: diazePAM 5 MG TABLET PO SCH ×2 (05:36→17:38)
[2019-01-11] MEDS: METHOCARBAMOL 500 MG TABLET PO PRN ×3 (05:36→17:42)
[2019-01-11] MEDS: hydrOXYzine PAMOATE 25 MG CAPSULE (FP) PO PRN ×2 (05:36→14:44)
[2019-01-11] MEDS ORDERED: METHADONE HCL 10 MG TABLET (FOR DETOX USE ONLY) PO ONE ×2 (10:00→11:45)
[2019-01-11] MEDS: PRENATAL VITAMINS W/ FOLIC ACID TABLET (FP) PO SCH (10:13)
--- NOTE | 2019-01-11 10:17 | PN ---
S CIWA - CIWA Score Nausea/Vomitin-Mild Nausea/No Vomiting Muscle Tremors: 3 Anxiety: 3 Agitation: 2 Paroxysmal Sweats: 1-Minimal Palms Moist Orientation: 0-Oriented Tacttile Disturbances: 0-None Auditory Disturbances: 0-None Visual Disturbances: 0-None Headache: 0-None Present CIWA-Ar Total Score: 10 BHS COWS - Scale Resting Pulse: 1= [place] 81-100 Sweatin= Chills/Flushing Restless Observation: 0= Sits Still Pupil Size: 1= Pupils >than Normal Bone or Joint Aches: 1= Mild Discomfort Runny Nose/ Eye Tearin= Nasal Congestion GI Upset > 30mins: 1= Stomach Cramp Tremor Observation of Outstretched Hands: 2= Slight Tremor Visible Yawning Observation: 1= 1-2x During Session Anxiety or Irritability: 1=Feels Anxious/Irritable Goose Flesh Skin: 0=Smooth Skin COWS Score: 10 BHS Progress Note (SOAP) Subjective: PATIENT REFUSES TO TAKE 20 MG OF METHADONE DISCUSS WITH THE PATIENT AND THE NURSE THAT THE PATIENT AGREES TO TAKE METHADONE 10 MG PO TODAY DISCONTINUE METHADONE 20 MG PO TODAY ORDERED 10 MG PO OF METHADONE 43 years old male admitted on 01/09/19 for alcohol and opiate withdrawal sx management treated wtih valium and methadone detox regimen patient received methadone 25 mg po yesterday patient took 10 mg po methadone today continue observe opiate withdrawal sx Objective: 01/11/19 13:44 Vital Signs Temperature 97 F L 01/11/19 09:32 Pulse Rate 92 H 01/11/19 09:32 Respiratory Rate 20 01/11/19 09:32 Blood Pressure 133/88 01/11/19 09:32 O2 Sat by Pulse Oximetry (%) Laboratory Last Values WBC 6.5 K/mm3 (4.0-10.0) 01/09/19 10:45 RBC 4.61 M/mm3 (4.00-5.60) 01/09/19 10:45 Hgb 13.1 GM/dL (11.7-16.9) 01/09/19 10:45 Hct 39.6 % (35.4-49) 01/09/19 10:45 MCV 85.9 fl (80-96) 01/09/19 10:45 MCH 28.5 pg (25.7-33.7) 01/09/19 10:45 MCHC 33.2 g/dl (32.0-35.9) 01/09/19 10:45 RDW 13.2 % (11.9-15.9) 01/09/19 10:45 Plt Count 323 K/MM3 (134-434) D 01/09/19 10:45 MPV 8.4 fl (7.5-11.1) 01/09/19 10:45 Sodium 136 mmol/L (136-145) 01/09/19 10:45 Potassium 4.1 mmol/L (3.5-5.1) 01/09/19 10:45 Chloride 103 mmol/L (98-107) 01/09/19 10:45 Carbon Dioxide 28 mmol/L (21-32) 01/09/19 10:45 Anion Gap 5 MMOL/L (8-16) L 01/09/19 10:45 BUN 16.1 mg/dL (7-18) 01/09/19 10:45 Creatinine 0.7 mg/dL (0.55-1.3) 01/09/19 10:45 Est GFR (CKD-EPI)AfAm 134.91 01/09/19 10:45 Est GFR (CKD-EPI)NonAf 116.40 01/09/19 10:45 Random Glucose 84 mg/dL (74-106) 01/09/19 10:45 Calcium 9.0 mg/dL (8.5-10.1) 01/09/19 10:45 Total Bilirubin 0.3 mg/dL (0.2-1) 01/09/19 10:45 AST 19 U/L (15-37) 01/09/19 10:45 ALT 21 U/L (13-61) 01/09/19 10:45 Alkaline Phosphatase 57 U/L (45-117) 01/09/19 10:45 Total Protein 6.9 g/dl (6.4-8.2) 01/09/19 10:45 Albumin 3.8 g/dl (3.4-5.0) 01/09/19 10:45 RPR Titer Nonreactive (NONREACTIVE) 01/09/19 10:45 lab noted patient prefers to be discharged tomorrow that he has family obligation to care for his daughter discuss risks of rapid opiate detox Assessment: 01/11/19 13:48 alcohol and opiate withdrawal sx Plan: continue valium and methadone detox regimen
[2019-01-11] MEDS: NICOTINE POLACRILEX 4 MG GUM BUC PRN ×2 (15:32→17:42)
[2019-01-11] MEDS: THIAMINE HCL 100 MG TABLET (FP) PO SCH (22:38)
[2019-01-12] MEDS ORDERED: diazePAM 5 MG TABLET PO ONE (06:00)
[2019-01-12 07:17] VITALS: BP 111/78; PULSE 90; TEMP 97.5
[2019-01-12] MEDS: PRENATAL VITAMINS W/ FOLIC ACID TABLET (FP) PO SCH (09:09)
[2019-01-12] MEDS ORDERED: METHADONE (DETOX) 10 MG, METHADONE (DETOX) 5 MG PO ONE (10:00)
--- NOTE | 2019-01-12 11:24 | DS ---
[facility] Detox Discharge Summary Admission Date: 01/09/19 Discharge Date: 01/12/19 - History Present History: Alcohol Dependence, Opioid Dependence Additional Comments: 43 years old male admitted on 01/09/19 for alcohol and opiate withdrawal sx management treated with valium and methadone detox regimen completed valium regimen today patient insists to leave the detox unit today that his daughter needs him and "down stair" doctor allows him the be regular discharge today with valium regimen ended patient is alert orientedf x 3 speech clearly coherently patient understands that a volunteer detox program can be terminated any time at any point of detox process 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 patient refuses discharge exist physical examination refuses cows Pertinent Past History: discuss medication assisted treatment program opioid addiction fatality can be avoid through picking up narcan from pharmacy - Physical Exam Results Vital Signs: Vital Signs Temperature 97.5 F L 01/12/19 07:17 Pulse Rate 90 01/12/19 07:17 Respiratory Rate 20 01/12/19 07:17 Blood Pressure 111/78 01/12/19 07:17 O2 Sat by Pulse Oximetry (%) Pertinent Admission Physical Exam Findings: alcohol and opiate withdrawal sx Laboratory Last Values WBC 6.5 K/mm3 (4.0-10.0) 01/09/19 10:45 RBC 4.61 M/mm3 (4.00-5.60) 01/09/19 10:45 Hgb 13.1 GM/dL (11.7-16.9) 01/09/19 10:45 Hct 39.6 % (35.4-49) 01/09/19 10:45 MCV 85.9 fl (80-96) 01/09/19 10:45 MCH 28.5 pg (25.7-33.7) 01/09/19 10:45 MCHC 33.2 g/dl (32.0-35.9) 01/09/19 10:45 RDW 13.2 % (11.9-15.9) 01/09/19 10:45 Plt Count 323 K/MM3 (134-434) D 01/09/19 10:45 MPV 8.4 fl (7.5-11.1) 01/09/19 10:45 Sodium 136 mmol/L (136-145) 01/09/19 10:45 Potassium 4.1 mmol/L (3.5-5.1) 01/09/19 10:45 Chloride 103 mmol/L (98-107) 01/09/19 10:45 Carbon Dioxide 28 mmol/L (21-32) 01/09/19 10:45 Anion Gap 5 MMOL/L (8-16) L 01/09/19 10:45 BUN 16.1 mg/dL (7-18) 01/09/19 10:45 Creatinine 0.7 mg/dL (0.55-1.3) 01/09/19 10:45 Est GFR (CKD-EPI)AfAm 134.91 01/09/19 10:45 Est GFR (CKD-EPI)NonAf 116.40 01/09/19 10:45 Random Glucose 84 mg/dL (74-106) 01/09/19 10:45 Calcium 9.0 mg/dL (8.5-10.1) 01/09/19 10:45 Total Bilirubin 0.3 mg/dL (0.2-1) 01/09/19 10:45 AST 19 U/L (15-37) 01/09/19 10:45 ALT 21 U/L (13-61) 01/09/19 10:45 Alkaline Phosphatase 57 U/L (45-117) 01/09/19 10:45 Total Protein 6.9 g/dl (6.4-8.2) 01/09/19 10:45 Albumin 3.8 g/dl (3.4-5.0) 01/09/19 10:45 RPR Titer Nonreactive (NONREACTIVE) 01/09/19 10:45 lab noted - Treatment Hospital Course: Detox Protocol Followed, Responded well Patient has Accepted a Rehab Referral to: community support approach - Medication Discharge Medications: Ambulatory Orders Naloxone HCl [Narcan] 4 mg NS ASDIR PRN #1 spray 01/12/19 - Diagnosis (1) Alcohol dependence Current Visit: Yes Status: Acute Qualifiers: Substance use status: uncomplicated Qualified Code(s): F10.20 - Alcohol dependence, uncomplicated (2) Nicotine dependence Current Visit: Yes Status: Acute Qualifiers: Nicotine product type: cigarettes Substance use status: in withdrawal Qualified Code(s): F17.213 - Nicotine dependence, cigarettes, with withdrawal (3) Alcohol dependence with uncomplicated withdrawal Current Visit: Yes Status: Acute (4) Opioid dependence with withdrawal Current Visit: Yes Status: Acute (5) Substance induced mood disorder Current Visit: Yes Status: Suspected - AMA Did Patient Leave Against Medical Advice: Yes
[2019-01-13] MEDS ORDERED: METHADONE HCL 10 MG TABLET (FOR DETOX USE ONLY) PO ONE (10:00)
[2019-01-14] MEDS ORDERED: METHADONE HCL 5 MG TABLET (FOR DETOX USE ONLY) PO ONE (06:00)
== END 2019-01-12 08:44 | disposition left against medical advice (07) | DRG 770 ==
LOC: YASAS 08:29 → Y3N 09:56
PROVIDERS: ADMIT Allergy & Immunology; ATTEND Allergy & Immunology
PROC: HZ2ZZZZ Detoxification Services for Substance Abuse Treatment (ICD-10-PCS; principal; 2019-01-09)
DX: F10.230 Alcohol dependence with withdrawal, uncomplicated (principal); F11.23 Opioid dependence with withdrawal; F17.213 Nicotine dependence, cigarettes, with withdrawal; F19.24 Other psychoactive substance dependence with psychoactive substance-induced mood disorder
CPT/HCPCS: 36415; 80053; 85027; 86593; 93005; 93010; J0735; Q2036

== ENCOUNTER 2019-03-19 15:36 | Inpatient (IN) | payer OTHER ==
[2019-03-19 17:33] VITALS: BMI 32.9
--- NOTE | 2019-03-19 18:47 | HP ---
COWS - Scale Resting Pulse: 0= [place] 80 or Below Sweatin= Beads of Sweat on Face Restless Observation: 1= Difficult to Sit Still Pupil Size: 0= Normal to Room Light Bone or Joint Aches: 2= Severe Diffuse Aches Runny Nose/ Eye Tearin= None GI Upset > 30mins: 1= Stomach Cramp Tremor Observation: 2= Slight Tremor Visible Yawning Observation: 2= >3x During Session Anxiety or Irritability: 4=Extreme Anxiety Goose Flesh Skin: 0=Smooth Skin COWS Score: 15 CIWA Score Nausea/Vomitin Muscle Tremors: 2 Anxiety: 4-Mod. Anxious/Guarded Agitation: 1-Slight > Activity Paroxysmal Sweats: 3 Orientation: 0-Oriented Tacttile Disturbances: 0-None Auditory Disturbances: 0-None Visual Disturbances: 0-None Headache: 0-None Present CIWA-Ar Total Score: 12 - Admission Criteria [facility] Guidelines: Admission for Medically Managed Detox: Requires at least one of the followin. CIWA greater than 12 2. Seizures within the past 24 hours 3. Delirium tremens within the past 24 hours 4. Hallucinations within the past 24 hours 5. Acute intervention needed for co occurring medical disorder 6. Acute intervention needed for co occurring psychiatric disorder 7. Severe withdrawal that cannot be handled at a lower level of care (continued vomiting, continued diarrhea, abnormal vital signs) requiring intravenous medication and/or fluids 8. Admitting History and Physical - Admission Chief Complaint: "i'm here for heroin and alcohol detox". History of Present Illness: A 43year old male with history of heroin and alcohol use disorder who presents here today requesting for heroin and alcohol detox. Pt last detox here was on to 01/12/2019. As per chart pt was on suboxone treatment 01/14/2018 to 08/14/2018. Pt states, he relapsed right after he stopped taking soboxone. Pt reports that several attempts to remain sober has failed and plan to go to rehab for continued management after detox. History Source: Patient Limitations to Obtaining History: No Limitations - Smoking History Smoking history: Current every day smoker Have you smoked in the past 12 months: Yes Aproximately how many cigarettes per day: 20 - Alcohol/Substance Use Hx Alcohol Use: Yes History of Substance Use: reports: Heroin - Social History Usual Living Arrangement: Yes: Alone Do you think of yourself as: Straight/Heterosexual ADL: Independent History of Recent Travel: No Admission ROS S - HPI Allergies/Adverse Reactions: Allergies Allergy/AdvReac Type Severity Reaction Status Date / Time No Known Allergies Allergy Verified 03/19/19 17:20 Exam Limitations: No Limitations - Ebola screening Have you traveled outside of the country in the last 21 days: No Have you had contact with anyone from an Ebola affected area: No Have you been sick,other than usual withdrawal symptoms: No Do you have a fever: No - Review of Systems Constitutional: Chills, Night Sweats EENT: reports: No Symptoms Reported Respiratory: reports: No Symptoms reported Cardiac: reports: No Symptoms Reported GI: reports: Nausea, Abdominal cramping : reports: No Symptoms Reported Musculoskeletal: reports: No Symptoms Reported Integumentary: reports: No Symptoms Reported Neuro: reports: Headache, Tremors Endocrine: reports: No Symptoms Reported Hematology: reports: No Symptoms Reported Psychiatric: reports: Mood/Affect Appropiate, Anxious Patient History - Patient Medical History Hx Anemia: No Hx Asthma: No Hx Chronic Obstructive Pulmonary Disease (COPD): No Hx Cancer: No Hx Cardiac Disorders: No Hx Congestive Heart Failure: No Hx Hypertension: No Hx Hypercholesterolemia: No Hx Pacemaker: No HX Cerebrovascular Accident: No Hx Seizures: No Hx Dementia: No Hx Diabetes: No Hx Gastrointestinal Disorders: No Hx Liver Disease: No Hx Genitourinary Disorders: No Hx Sexually Transmitted Disorders: No Hx Renal Disease (ESRD): No Hx Thyroid Disease: No Hx Human Immunodeficiency Virus (HIV): No (Negative 2018) Hx Hepatitis C: No (Negative 2016) Hx Depression: No Hx Suicide Attempt: No Hx Bipolar Disorder: No Hx Schizophrenia: No - Patient Surgical History Past Surgical History: No Hx Neurologic Surgery: No Hx Cataract Extraction: No Hx Cardiac Surgery: No Hx Lung Surgery: No Hx Breast Surgery: No Hx Breast Biopsy: No Hx Abdominal Surgery: No Hx Appendectomy: No Hx Cholecystectomy: No Hx Genitourinary Surgery: No Hx Section: No Hx Orthopedic Surgery: No Anesthesia Reaction: No - PPD History Previous Implant?: Yes (Pt states he had one on his last visit in dec, 2018) Documented Results: Negative w/proof Implanted On Prior [facility] Admission?: Yes PPD to be Administered?: No - Reproductive History Patient : No - Smoking Cessation Smoking history: Current every day smoker Have you smoked in the past 12 months: Yes Aproximately how many cigarettes per day: 20 Hx Chewing Tobacco Use: No Initiated information on smoking cessation: Yes 'Breaking Loose' booklet given: 03/19/19 - Substance & Tx. History Hx Alcohol Use: Yes Hx Substance Use: Yes Substance Use Type: Alcohol, Heroin Hx Substance Use Treatment: Yes (Was on suboxone 01/14/2018-08/14/2018) - Substances abused Alcohol Substance route: Oral Frequency: Daily Amount used: 1pint daily Age of first use: 17 Date of last use: 03/17/19 Heroin Substance route: Inhalation Frequency: Daily Amount used: 20bags/day Age of first use: 39 Date of last use: 03/18/19 Admission Physical Exam S - Vital Signs Vital Signs: Vital Signs - 24 hr 03/19/19 17:23 Temperature 98.2 F Pulse Rate 65 Respiratory 16 Rate Blood Pressure 151/80 - Physical General Appearance: Yes: No Apparent Distress, Tremorous, Irritable, Sweating, Anxious HEENTM: Yes: EOMI, Hearing grossly Normal, Normocephalic, Normal Voice, SWETHA Respiratory: Yes: Chest Non-Tender, Lungs Clear, No Respiratory Distress Neck: Yes: No masses,lesions,Nodules Breast: Yes: Within Normal Limits Cardiology: Yes: Regular Rhythm, Regular Rate, S1, S2 Abdominal: Yes: Normal Bowel Sounds, Non Tender, Soft Genitourinary: Yes: Within Normal Limits Back: Yes: Normal Inspection Musculoskeletal: Yes: full range of Motion, Gait Steady Extremities: Yes: Tremors Neurological: Yes: Alert, Normal Mood/Affect, Normal Response Integumentary: Yes: Dry, Warm Lymphatic: Yes: Within Normal Limits - Diagnostic (1) Alcohol dependence Current Visit: No Status: Chronic Qualifiers: Substance use status: uncomplicated Qualified Code(s): F10.20 - Alcohol dependence, uncomplicated (2) Alcohol dependence with uncomplicated withdrawal Current Visit: No Status: Acute (3) Nicotine dependence Current Visit: No Status: Chronic Qualifiers: Nicotine product type: cigarettes Substance use status: in withdrawal Qualified Code(s): F17.213 - Nicotine dependence, cigarettes, with withdrawal (4) Opioid dependence with withdrawal Current Visit: No Status: Acute (5) Opioid dependence Current Visit: No Status: Chronic Qualifiers: Substance use status: uncomplicated Qualified Code(s): F11.20 - Opioid dependence, uncomplicated Cleared for Admission [facility] - Detox or Rehab [facility] Level of Care: Medically Managed Detox Regimen/Protocol: Methadone/Valium Claeared for Rehab Admission: No Breathalyzer - Breathalyzer Breathalyzer: 0 Urine Drug Screen - Test Device Lot number: [id number] Expiration date: 01/12/21 - Control Is test valid?: Yes - Results Drug screen NEGATIVE: No Urine drug screen results: JEREMY-Cocaine, MOP-Opiates, MTD-Methadone, BZO- Benzodiazepines Inpatient Rehab Admission - Rehab Decision to Admit Inpatient rehab admission?: No
[2019-03-19] MEDS ORDERED: guaiFENesin 200 MG/10 ML 10 ML UNIT-DOSE CUPS PO PRN (19:12)
[2019-03-19] MEDS ORDERED: BISMUTH SUBSALICYLATE 524 MG/30 ML UD PO PRN (19:12)
[2019-03-19] MEDS ORDERED: ACETAMINOPHEN 325 MG TABLET (FP) PO PRN ×2 (19:12)
[2019-03-19] MEDS ORDERED: MAGNESIUM HYDROX 2400MG/30ML ORAL SUSPENSION 30 ML CUP PO PRN (19:12)
[2019-03-19] MEDS ORDERED: MAGNESIUM CITRATE 300 ML BOTTLE PO PRN (19:12)
[2019-03-19] MEDS ORDERED: MAG HYDROX/AL HYDROX/SIMETH 30 ML UNIT-DOSE CUP PO PRN (19:12)
[2019-03-19] MEDS ORDERED: P-EPHED 60MG/TRIPROLIDI 2.5MG TABLET PO PRN (19:12)
[2019-03-19] MEDS ORDERED: MENTHOL/PHENOL 1 EACH UD MM PRN (19:12)
[2019-03-19] MEDS ORDERED: IBUPROFEN 400 MG TABLET (FP) PO PRN (19:12)
[2019-03-19] MEDS ORDERED: PROCHLORPERAZINE MALEATE 5 MG TABLET PO PRN (19:12)
[2019-03-19] MEDS ORDERED: METHADONE HCL 10 MG TABLET (FOR DETOX USE ONLY) PO ONE (19:16)
[2019-03-19] MEDS: diazePAM 5 MG TABLET PO PRN (20:16)
[2019-03-19] MEDS: NICOTINE POLACRILEX 2 MG GUM BUC PRN (20:20)
[2019-03-19] MEDS: THIAMINE HCL 100 MG TABLET (FP) PO SCH (22:25)
[2019-03-19] MEDS: diazePAM 5 MG TABLET PO SCH (22:25)
[2019-03-19] MEDS: MELATONIN 5 MG TABLETS PO PRN (22:27)
[2019-03-20] MEDS: diazePAM 5 MG TABLET PO SCH ×3 (05:32→21:55)
[2019-03-20] MEDS ORDERED: METHADONE HCL 5 MG TABLET (FOR DETOX USE ONLY) ONE (09:38)
[2019-03-20] MEDS ORDERED: METHADONE HCL 10 MG TABLET (FOR DETOX USE ONLY) ONE (09:38)
[2019-03-20] MEDS ORDERED: METHADONE (DETOX) 20 MG, METHADONE (DETOX) 5 MG PO ONE (10:00)
[2019-03-20 10:20] LABS: HEMATOCRIT 41.5 % (35.4-49); HEMOGLOBIN 13.6 GM/dL (11.7-16.9); MCH 27.9 pg (25.7-33.7); MCHC 32.8 g/dl (32.0-35.9); MEAN CELL VOLUME 85.1 fl (80-96); MEAN PLT VOLUME 8.5 fl (7.5-11.1); PLATELET COUNT 235 K/MM3 (134-434); RBC 4.88 M/mm3 (4.00-5.60); RDW 14.3 % (11.9-15.9); WHITE BLOOD COUNT 6.7 K/mm3 (4.0-10.0)
[2019-03-20 10:22] LABS: ALBUMIN 3.2 g/dl (3.4-5.0); BILIRUBIN,TOTAL 0.3 mg/dL (0.2-1); BLOOD UREA NITROGEN 10.5 mg/dL (7-18); CALCIUM 8.4 mg/dL (8.5-10.1); CREATININE 0.6 mg/dL (0.55-1.3); POTASSIUM 4.1 mmol/L (3.5-5.1); TOT PROT 6.3 g/dl (6.4-8.2)
[2019-03-20] MEDS: diazePAM 5 MG TABLET PO PRN ×2 (10:37→17:00)
[2019-03-20] MEDS: PRENATAL VITAMINS W/ FOLIC ACID TABLET (FP) PO SCH (10:38)
--- NOTE | 2019-03-20 11:52 | PN ---
[facility] CIWA - CIWA Score Nausea/Vomitin Muscle Tremors: 3 Anxiety: 2 Agitation: 2 Paroxysmal Sweats: 2 Orientation: 0-Oriented Tacttile Disturbances: 0-None Auditory Disturbances: 0-None Visual Disturbances: 0-None Headache: 0-None Present CIWA-Ar Total Score: 12 [facility] COWS - Scale Resting Pulse: 0= [place] 80 or Below Sweatin= Chills/Flushing Restless Observation: 1= Difficult to Sit Still Pupil Size: 0= Normal to Room Light Bone or Joint Aches: 1= Mild Discomfort Runny Nose/ Eye Tearin= Nasal Congestion GI Upset > 30mins: 2= Nausea/Diarrhea Tremor Observation of Outstretched Hands: 1= Tremor [place], Not Seen Yawning Observation: 0= None Anxiety or Irritability: 1=Feels Anxious/Irritable Goose Flesh Skin: 0=Smooth Skin COWS Score: 8 [facility] Progress Note (SOAP) Subjective: Vitals: BP: 107/74 P:78 R:16 T:97.9 Abnormal Lab Results 03/20/19 08:30 Anion Gap 6 L Calcium 8.4 L Total Protein 6.3 L Albumin 3.2 L Assessment: 03/20/19 11:58 1. Alcohol Dependence with withdrawal 2. Opioid Dependence with withdrawal 3. Abnormal preliminary labs noted Plan: 1. Continue Methadone Detox protocol 2. Continue Valium Detox protocol 3. Abnormal labs noted consistent with vomitting, poor nutrition and poor intake of calcium. Encourage hydration and food. Can add Ensure to meals for extra nutrition and supplements. Dr. Ruiz
--- NOTE | 2019-03-20 12:48 | EKG ---
Test Reason : Blood Pressure : / mmHG Vent. Rate : 069 BPM Atrial Rate : 069 BPM P-R Int : 154 ms QRS Dur : 098 ms QT Int : 420 ms P-R-T Axes : 044 024 029 degrees QTc Int : 450 ms NORMAL SINUS RHYTHM NON-SPECIFIC INTRA-VENTRICULAR CONDUCTION DELAY POOR R WAVE PROGRESSION WHEN COMPARED WITH ECG OF 09-JAN-2019 11:15, NO SIGNIFICANT CHANGE WAS FOUND Confirmed by AYDEN GARCIA MD ([id number]) on 03/20/2019 12:47:33 PM Referred By: Confirmed By:AYDEN GARCIA MD
[2019-03-20] MEDS: NICOTINE POLACRILEX 2 MG GUM BUC PRN ×3 (17:01→21:25)
[2019-03-20] MEDS: hydrOXYzine PAMOATE 25 MG CAPSULE (FP) PO PRN (17:28)
--- NOTE | 2019-03-20 20:05 | PN ---
[facility] Progress Note Note: pt requesting psych eval for c/o anxiety Vital Signs - 24 hr 03/19/19 03/20/19 03/20/19 22:15 00:30 03:30 Temperature 98.1 F Pulse Rate 72 Respiratory 17 18 18 Rate Blood Pressure 119/79 03/20/19 03/20/19 03/20/19 07:13 07:35 09:36 Temperature 97.8 F 97.8 F 97 F L Pulse Rate 69 69 58 L Respiratory 18 18 20 Rate Blood Pressure 129/85 129/85 106/66 03/20/19 03/20/19 12:32 16:54 Temperature 96.8 F L 98.7 F Pulse Rate 56 L 74 Respiratory 20 18 Rate Blood Pressure 119/76 146/95 P : psych consult added.
[2019-03-20] MEDS: MELATONIN 5 MG TABLETS PO PRN (21:54)
[2019-03-20] MEDS: cloNIDine HCL 0.1 MG TABLET PO PRN (21:55)
[2019-03-20] MEDS: THIAMINE HCL 100 MG TABLET (FP) PO SCH (21:55)
[2019-03-21] MEDS: diazePAM 5 MG TABLET PO PRN ×4 (03:08→20:03)
[2019-03-21] MEDS: diazePAM 5 MG TABLET PO SCH ×2 (05:20→17:25)
[2019-03-21] MEDS: hydrOXYzine PAMOATE 25 MG CAPSULE (FP) PO PRN ×3 (05:20→22:28)
[2019-03-21] MEDS: cloNIDine HCL 0.1 MG TABLET PO PRN (07:29)
[2019-03-21] MEDS: NICOTINE POLACRILEX 2 MG GUM BUC PRN ×4 (07:30→22:29)
[2019-03-21] MEDS ORDERED: METHADONE HCL 10 MG TABLET (FOR DETOX USE ONLY) PO ONE (10:00)
[2019-03-21] MEDS: PRENATAL VITAMINS W/ FOLIC ACID TABLET (FP) PO SCH (10:28)
--- NOTE | 2019-03-21 10:46 | CONSULT ---
[facility] Psychiatric Consult - Data Date of interview: 03/21/19 Admission source: [facility] Identifying data: Readmission to [address] [place] [address] for this 43 y/o male self- referred for detoxification treatment. ZAIRA issues : alcohol, heroin, nicotine, cocaine. Patient is single, a father of three (claimed one dependent at a previous visit), domiciled, unemployed and supported by relatives. Substance Abuse History: Discussed in this session. Details in current [facility] report as follows : Smoking history: Current every day smoker. Have you smoked in the past 12 months: Yes. Aproximately how many cigarettes per day: 20. Hx Chewing Tobacco Use: No. Initiated information on smoking cessation: Yes. ' Breaking Loose' booklet given: 03/19/19. - Substance & Tx. History. Hx Alcohol Use: Yes. Hx Substance Use: Yes. Substance Use Type: Alcohol, Heroin. Hx Substance Use Treatment: Yes (Was on suboxone 01/14/2018-08/14/2018). - Substances abused. Alcohol. Substance route: Oral. Frequency: Daily. Amount used: 1pint daily. Age of first use: 17. Date of last use: 03/17/19. * * Heroin. Substance route: Inhalation. Frequency: Daily. Amount used: 20bags/ day. Age of first use: 39. Date of last use: 03/18/19 Medical History: Patient endorses good general health. Psychiatric History: No reported history of psychiatric hospitalizations. Patient denies having a mental health OPD provider. Mr Doll reports prior diagnoses of MDD and Bipolar Disorder. Denies taking psychotropic medications. Patient has reportedly been lost to follow-up for past two years (last affiliation was at [facility]). Patient denies history of suicide attempts. Physical/Sexual Abuse/Trauma History: Patient denies. Additional Comment: Urine drug screen results: JEREMY-Cocaine, MOP-Opiates, MTD- Methadone, BZO-Benzodiazepines. Noted. Mental Status Exam - Mental Status Exam Alert and Oriented to: Time, Place, Person Cognitive Function: Good Patient Appearance: Well Groomed (overweight) Mood: Nervous, Withdrawn Affect: Mood Congruent, Constricted Patient Behavior: Fatigued, Appropriate, Cooperative Speech Pattern: Clear, Appropriate Voice Loudness: Normal Thought Process: Intact, Goal Oriented Thought Disorder: Not Present Hallucinations: Denies Suicidal Ideation: Denies Homicidal Ideation: Denies Insight/Judgement: Poor Sleep: Poorly, Difficulty falling asleep (wants seroquel) Appetite: Good Gait/Station: Normal Psychiatric Findings - Problem List ([place] 1, 2,3) (1) Alcohol dependence with uncomplicated withdrawal Current Visit: Yes Status: Acute (2) Opioid dependence with withdrawal Current Visit: Yes Status: Acute (3) Cocaine dependence, uncomplicated Current Visit: Yes Status: Chronic (4) Nicotine dependence Current Visit: Yes Status: Chronic Qualifiers: Nicotine product type: cigarettes Substance use status: in withdrawal Qualified Code(s): F17.213 - Nicotine dependence, cigarettes, with withdrawal (5) Substance induced mood disorder Current Visit: Yes Status: Chronic (6) Insomnia Current Visit: Yes Status: Chronic - Initial Treatment Plan Initial Treatment Plan: Psychoeducation. Sleep hygiene. Detoxification. Support. AA/NA meetings. MAT services discussed with patient. Seroquel 100 mg po hs. Ordered at patient's request. Side effects/benefits discussed with patient. Mr Doll is in agreement with this plan of care. Gave verbal consent to Observation.
--- NOTE | 2019-03-21 13:00 | PN ---
S CIWA - CIWA Score Nausea/Vomitin-No Nausea/No Vomiting Muscle Tremors: None Anxiety: 3 Agitation: 0-Normal Activity Paroxysmal Sweats: 3 Orientation: 0-Oriented Tacttile Disturbances: 0-None Auditory Disturbances: 0-None Visual Disturbances: 0-None Headache: 2-Mild CIWA-Ar Total Score: 8 [facility] COWS - Scale Resting Pulse: 0= [place] 80 or Below Sweatin= Chills/Flushing Restless Observation: 1= Difficult to Sit Still Pupil Size: 0= Normal to Room Light Bone or Joint Aches: 2= Severe Diffuse Aches Runny Nose/ Eye Tearin= None GI Upset > 30mins: 1= Stomach Cramp Tremor Observation of Outstretched Hands: 0= None Yawning Observation: 2= >3x During Session Anxiety or Irritability: 2=Irritable/Anxious Goose Flesh Skin: 0=Smooth Skin COWS Score: 9 [facility] Progress Note (SOAP) Subjective: c/o anxiety, irritability, muscle aches, and sweats. Objective: 03/21/19 12:59 Vital Signs 03/21/19 03/21/19 06:53 08:44 Temperature 96.9 F L 97.3 F L Pulse Rate 68 81 Respiratory 18 20 Rate Blood Pressure 128/79 129/87 Laboratory Last Values WBC 6.7 K/mm3 (4.0-10.0) 03/20/19 08:30 RBC 4.88 M/mm3 (4.00-5.60) 03/20/19 08:30 Hgb 13.6 GM/dL (11.7-16.9) 03/20/19 08:30 Hct 41.5 % (35.4-49) 03/20/19 08:30 MCV 85.1 fl (80-96) 03/20/19 08:30 MCH 27.9 pg (25.7-33.7) 03/20/19 08:30 MCHC 32.8 g/dl (32.0-35.9) 03/20/19 08:30 RDW 14.3 % (11.9-15.9) 03/20/19 08:30 Plt Count 235 K/MM3 (134-434) D 03/20/19 08:30 MPV 8.5 fl (7.5-11.1) 03/20/19 08:30 Sodium 139 mmol/L (136-145) 03/20/19 08:30 Potassium 4.1 mmol/L (3.5-5.1) 03/20/19 08:30 Chloride 106 mmol/L (98-107) 03/20/19 08:30 Carbon Dioxide 27 mmol/L (21-32) 03/20/19 08:30 Anion Gap 6 MMOL/L (8-16) L 03/20/19 08:30 BUN 10.5 mg/dL (7-18) 03/20/19 08:30 Creatinine 0.6 mg/dL (0.55-1.3) 03/20/19 08:30 Est GFR (CKD-EPI)AfAm 143.73 03/20/19 08:30 Est GFR (CKD-EPI)NonAf 124.01 03/20/19 08:30 Random Glucose 85 mg/dL (74-106) 03/20/19 08:30 Calcium 8.4 mg/dL (8.5-10.1) L 03/20/19 08:30 Total Bilirubin 0.3 mg/dL (0.2-1) 03/20/19 08:30 AST 18 U/L (15-37) 03/20/19 08:30 ALT 22 U/L (13-61) 03/20/19 08:30 Alkaline Phosphatase 58 U/L (45-117) 03/20/19 08:30 Total Protein 6.3 g/dl (6.4-8.2) L 03/20/19 08:30 Albumin 3.2 g/dl (3.4-5.0) L 03/20/19 08:30 RPR Titer Nonreactive (NONREACTIVE) 03/20/19 08:30 Labs noted. Assessment: 03/21/19 13:00 AOX3, in no acute respiratory distress. Full ROM, ambulating in the unit. Withdrawal symptoms. Plan: continue detox.
[2019-03-21] MEDS ORDERED: QUEtiapine FUMARATE 100 MG TABLET (FP) PO SCH (22:00)
[2019-03-21] MEDS: THIAMINE HCL 100 MG TABLET (FP) PO SCH (22:28)
[2019-03-21] MEDS: MELATONIN 5 MG TABLETS PO PRN (22:29)
[2019-03-22] MEDS: hydrOXYzine PAMOATE 25 MG CAPSULE (FP) PO PRN ×2 (05:23→12:55)
[2019-03-22] MEDS: METHOCARBAMOL 500 MG TABLET PO PRN (05:23)
[2019-03-22] MEDS: NICOTINE POLACRILEX 2 MG GUM BUC PRN ×4 (05:51→19:45)
[2019-03-22] MEDS ORDERED: diazePAM 5 MG TABLET PO ONE (06:00)
[2019-03-22] MEDS ORDERED: METHADONE HCL 5 MG TABLET (FOR DETOX USE ONLY) ONE (09:45)
[2019-03-22] MEDS ORDERED: METHADONE HCL 10 MG TABLET (FOR DETOX USE ONLY) ONE (09:45)
[2019-03-22] MEDS: PRENATAL VITAMINS W/ FOLIC ACID TABLET (FP) PO SCH (09:57)
[2019-03-22] MEDS: diazePAM 5 MG TABLET PO PRN ×3 (09:57→18:33)
[2019-03-22] MEDS ORDERED: METHADONE (DETOX) 10 MG, METHADONE (DETOX) 5 MG PO ONE (10:00)
--- NOTE | 2019-03-22 10:28 | PN ---
[facility] CIWA - CIWA Score Nausea/Vomitin-No Nausea/No Vomiting Muscle Tremors: 2 Anxiety: 3 Agitation: 1-Slight > Activity Paroxysmal Sweats: No Perspiration Orientation: 0-Oriented Tacttile Disturbances: 0-None Auditory Disturbances: 0-None Visual Disturbances: 0-None Headache: 0-None Present CIWA-Ar Total Score: 6 S COWS - Scale Resting Pulse: 1= [place] 81-100 Sweatin= Chills/Flushing Restless Observation: 0= Sits Still Pupil Size: 0= Normal to Room Light Bone or Joint Aches: 0= None Runny Nose/ Eye Tearin= None GI Upset > 30mins: 0= None Tremor Observation of Outstretched Hands: 2= Slight Tremor Visible Yawning Observation: 0= None Anxiety or Irritability: 2=Irritable/Anxious Goose Flesh Skin: 0=Smooth Skin COWS Score: 6 S Progress Note (SOAP) Subjective: 43 years old male admitted on 03/19/19 for alcohol and opiate withdrawal sx management treating with valium and methadone detox regiments feeling anxious with seroquel 100 mg po at night psychiatric referral patient is alert oriented x 3 feeling tired resting in bed requests more valium for anxiety and depression health teaching on risks of valium related respiratory suppressant Objective: 03/22/19 10:38 Vital Signs Temperature 96.4 F L 03/22/19 06:32 Pulse Rate 90 03/22/19 06:32 Respiratory Rate 18 03/22/19 06:32 Blood Pressure 141/92 03/22/19 06:32 O2 Sat by Pulse Oximetry (%) Laboratory Last Values WBC 6.7 K/mm3 (4.0-10.0) 03/20/19 08:30 RBC 4.88 M/mm3 (4.00-5.60) 03/20/19 08:30 Hgb 13.6 GM/dL (11.7-16.9) 03/20/19 08:30 Hct 41.5 % (35.4-49) 03/20/19 08:30 MCV 85.1 fl (80-96) 03/20/19 08:30 MCH 27.9 pg (25.7-33.7) 03/20/19 08:30 MCHC 32.8 g/dl (32.0-35.9) 03/20/19 08:30 RDW 14.3 % (11.9-15.9) 03/20/19 08:30 Plt Count 235 K/MM3 (134-434) D 03/20/19 08:30 MPV 8.5 fl (7.5-11.1) 03/20/19 08:30 Sodium 139 mmol/L (136-145) 03/20/19 08:30 Potassium 4.1 mmol/L (3.5-5.1) 03/20/19 08:30 Chloride 106 mmol/L (98-107) 03/20/19 08:30 Carbon Dioxide 27 mmol/L (21-32) 03/20/19 08:30 Anion Gap 6 MMOL/L (8-16) L 03/20/19 08:30 BUN 10.5 mg/dL (7-18) 03/20/19 08:30 Creatinine 0.6 mg/dL (0.55-1.3) 03/20/19 08:30 Est GFR (CKD-EPI)AfAm 143.73 03/20/19 08:30 Est GFR (CKD-EPI)NonAf 124.01 03/20/19 08:30 Random Glucose 85 mg/dL (74-106) 03/20/19 08:30 Calcium 8.4 mg/dL (8.5-10.1) L 03/20/19 08:30 Total Bilirubin 0.3 mg/dL (0.2-1) 03/20/19 08:30 AST 18 U/L (15-37) 03/20/19 08:30 ALT 22 U/L (13-61) 03/20/19 08:30 Alkaline Phosphatase 58 U/L (45-117) 03/20/19 08:30 Total Protein 6.3 g/dl (6.4-8.2) L 03/20/19 08:30 Albumin 3.2 g/dl (3.4-5.0) L 03/20/19 08:30 RPR Titer Nonreactive (NONREACTIVE) 03/20/19 08:30 lab noted Assessment: 03/22/19 10:40 alcohol and opiate withdrawal Plan: valium and methadone regiments
[2019-03-22] MEDS ORDERED: hydrOXYzine PAMOATE 50 MG CAPSULE (FP) PO PRN (16:23)
--- NOTE | 2019-03-22 16:33 | PN ---
Psychiatric Progress Note Vital Signs: Vital Signs Period Temp Pulse Resp BP Sys/[place] Pulse Ox Last 24 Hr 96.4 F-98.7 F 70-109 18-18 129-141/79-92 Date of Session: 03/22/19 Chief Complaint:: " I am having bad anxiety and difficulty sleeping." HPI: Patient admitted to for alcohol, heroin, nicotine, cocaine dependence. Consultation ordered due to c/o anxiety and insomnia. ROS: Patient is alert + oriented X3. Patient restless, anxious, and tearful. Current Medications: Active Medications Generic Name Dose Route Start Last Admin Trade Name Freq PRN Reason Stop Dose Admin Acetaminophen 650 mg 03/19/19 19:12 Tylenol - PO Q6H PRN PAIN LEVEL 4 - 6 Acetaminophen 650 mg 03/19/19 19:12 Tylenol - PO Q6H PRN FEVER Al Hydroxide/Mg Hydroxide 30 ml 03/19/19 19:12 Mylanta Oral Suspension - PO Q6H PRN DYSPEPSIA Bismuth Subsalicylate 524 mg 03/19/19 19:12 Pepto-Bismol - PO Q1H PRN DIARRHEA Diazepam 10 mg 03/19/19 19:16 03/22/19 14:26 Valium - PO 03/22/19 19:15 10 mg Q4H PRN Administration WITHDRAWAL(CONT SUBST) Eucalyptus/Menthol/Phenol/Sorbitol 1 each 03/19/19 19:12 Cepastat Lozenge - MM 03/25/19 19:13 Q4H PRN SORE THROAT Guaifenesin 10 ml 03/19/19 19:12 Robitussin - PO Q6H PRN COUGH Hydroxyzine Pamoate 50 mg 03/22/19 16:23 Vistaril - PO 03/25/19 19:13 Q6H PRN For Anxiety Ibuprofen 400 mg 03/19/19 19:12 Motrin - PO Q6H PRN PAIN LEVEL 1 - 3 Magnesium Citrate 300 ml 03/19/19 19:12 Citroma - PO Q48H PRN CONSTIPATION Magnesium Hydroxide 30 ml 03/19/19 19:12 Milk Of Magnesia - PO PRN PRN CONSTIPATION Melatonin 5 mg 03/19/19 22:00 03/21/19 22:29 Melatonin PO 5 mg HS PRN Administration INSOMNIA Methadone HCl 5 mg 03/24/19 06:00 Dolophine - PO 03/24/19 06:01 ONCE@0600 ONE Methadone HCl 10 mg 03/23/19 10:00 Dolophine - PO 03/23/19 10:01 ONCE ONE Methocarbamol 500 mg 03/19/19 19:12 03/22/19 05:23 Robaxin - PO 03/25/19 19:13 500 mg Q6H PRN Administration MUSCLE SPASMS Nicotine Polacrilex 2 mg 03/19/19 19:12 03/22/19 12:55 Nicorette Gum - BUC 2 mg Q2H PRN Administration NICOTINE REPLACEMENT RX Multivit/Folic Acid/Iron 1 tab 03/20/19 10:00 03/22/19 09:57 Vitamins ([facility]) - PO 1 tab DAILY CRYSTAL Administration Prochlorperazine Maleate 5 mg 03/19/19 19:12 Compazine - PO 03/25/19 19:15 Q6H PRN Nausea/Vomiting Pseudoephedrine/Triprolidine 1 combo 03/19/19 19:12 Actifed - PO 03/25/19 19:15 Q6H PRN NASAL CONGESTION Quetiapine Fumarate 150 mg 03/22/19 16:23 Seroquel - PO HS CRYSTAL Thiamine HCl 100 mg 03/19/19 22:00 03/21/19 22:28 Vitamin B1 - PO 100 mg HS CRYSTAL Administration Medication(s) Change(s): Yes. Will d/c vistaril 25mg q6h + Seroquel 100mg HS. Will order Vistaril 50mg q6h + Seroquel 150mg HS. Current Side Effect: No Lab tests ordered: No Lab tests reviewed: Yes Provider note:: Patient seen by Dr. Rose. Dr. Rose note read and appreciated. Patient complaining of ongoing anxiety and difficulty sleeping. Patient tearful due to his circumstances of his history of drug use. States that he wants to improve as he is a father of one. Patient observed to be restless and constantly at the nurses station. Medications to be adjusted ( Please read section on medications changes). Patient also educated on the importance of utilizing his coping skills when his anxiety worsens. Sleep hygiene also discussed. Patient denies thoughts or urges to hurt self or others. Benefits and side effects of medications discussed. Verbal consent given. Total face to face time:: 25 Mental Status Exam - Mental Status Exam Alert and Oriented to: Time, Place, Person Cognitive Function: Good Patient Appearance: Well Groomed Mood: Sad, Anxious Affect: Mood Congruent Patient Behavior: Cooperative Speech Pattern: Appropriate Voice Loudness: Normal Thought Process: Intact, Goal Oriented Thought Disorder: Not Present Hallucinations: Denies Suicidal Ideation: Denies Homicidal Ideation: Denies Insight/Judgement: Poor Sleep: Poorly Appetite: Fair Muscle strength/Tone: Normal Gait/Station: Normal Psychiatric Treatment Plan - Problem List (1) Substance-induced sleep disorder Current Visit: Yes (2) Alcohol dependence with uncomplicated withdrawal Current Visit: Yes (3) Opioid dependence with withdrawal Current Visit: Yes (4) Cocaine dependence, uncomplicated Current Visit: Yes (5) Substance induced mood disorder Current Visit: Yes
[2019-03-22] MEDS ORDERED: QUEtiapine FUMARATE 50 MG TABLET PO SCH (22:00)
[2019-03-22] MEDS: THIAMINE HCL 100 MG TABLET (FP) PO SCH (22:20)
[2019-03-23] MEDS ORDERED: METHADONE HCL 10 MG TABLET (FOR DETOX USE ONLY) PO ONE (10:00)
[2019-03-23] MEDS: METHOCARBAMOL 500 MG TABLET PO PRN (10:16)
[2019-03-23] MEDS: PRENATAL VITAMINS W/ FOLIC ACID TABLET (FP) PO SCH (10:16)
[2019-03-23 13:28] VITALS: BP 118/91; PULSE 97; TEMP 96.2
--- NOTE | 2019-03-23 13:41 | DS ---
[facility] Detox Discharge Summary Admission Date: 03/19/19 Discharge Date: 03/23/19 - History Present History: Alcohol Dependence, Opioid Dependence Additional Comments: 43 years old male admitted on 03/20/19 for alcohol and opiate withdrawal sx management treated with valium and methadone detox regiments seen by psychiatrist resume seroquel 100 mg po daily feeling better alert oriented x 3 discontinue every 30 minutes observation patient prefers to leave detox unit today that the sister will pick him up today to [facility] rehab facility today patient is optimistic and determines to maintain sober case discussed with the nurse that routine discharge is appropriated estimate date of discharge will be 03/24/19 tomorrow cardiac s1s2 regular rate rhythm respiratory clear lungs bilaterally on auscultation extremities full range of motion - Physical Exam Results Vital Signs: Vital Signs Temperature 96.2 F L 03/23/19 08:37 Pulse Rate 97 H 03/23/19 08:37 Respiratory Rate 18 03/23/19 08:37 Blood Pressure 118/91 03/23/19 08:37 O2 Sat by Pulse Oximetry (%) Pertinent Admission Physical Exam Findings: alcohol and opiate withdrawal Laboratory Last Values WBC 6.7 K/mm3 (4.0-10.0) 03/20/19 08:30 RBC 4.88 M/mm3 (4.00-5.60) 03/20/19 08:30 Hgb 13.6 GM/dL (11.7-16.9) 03/20/19 08:30 Hct 41.5 % (35.4-49) 03/20/19 08:30 MCV 85.1 fl (80-96) 03/20/19 08:30 MCH 27.9 pg (25.7-33.7) 03/20/19 08:30 MCHC 32.8 g/dl (32.0-35.9) 03/20/19 08:30 RDW 14.3 % (11.9-15.9) 03/20/19 08:30 Plt Count 235 K/MM3 (134-434) D 03/20/19 08:30 MPV 8.5 fl (7.5-11.1) 03/20/19 08:30 Sodium 139 mmol/L (136-145) 03/20/19 08:30 Potassium 4.1 mmol/L (3.5-5.1) 03/20/19 08:30 Chloride 106 mmol/L (98-107) 03/20/19 08:30 Carbon Dioxide 27 mmol/L (21-32) 03/20/19 08:30 Anion Gap 6 MMOL/L (8-16) L 03/20/19 08:30 BUN 10.5 mg/dL (7-18) 03/20/19 08:30 Creatinine 0.6 mg/dL (0.55-1.3) 03/20/19 08:30 Est GFR (CKD-EPI)AfAm 143.73 03/20/19 08:30 Est GFR (CKD-EPI)NonAf 124.01 03/20/19 08:30 Random Glucose 85 mg/dL (74-106) 03/20/19 08:30 Calcium 8.4 mg/dL (8.5-10.1) L 03/20/19 08:30 Total Bilirubin 0.3 mg/dL (0.2-1) 03/20/19 08:30 AST 18 U/L (15-37) 03/20/19 08:30 ALT 22 U/L (13-61) 03/20/19 08:30 Alkaline Phosphatase 58 U/L (45-117) 03/20/19 08:30 Total Protein 6.3 g/dl (6.4-8.2) L 03/20/19 08:30 Albumin 3.2 g/dl (3.4-5.0) L 03/20/19 08:30 RPR Titer Nonreactive (NONREACTIVE) 03/20/19 08:30 lab noted - Treatment Hospital Course: Detox Protocol Followed, Detoxed Safely, Responded well, Discharged Condition Good, Rehab Referral Accepted Patient has Accepted a Rehab Referral to: [facility] - Medication Discharge Medications: Ambulatory Orders NK [No Known Home Medication] 03/19/19 - Diagnosis (1) Alcohol dependence with uncomplicated withdrawal Current Visit: Yes Status: Acute (2) Opioid dependence with withdrawal Current Visit: Yes Status: Acute (3) Nicotine dependence Current Visit: Yes Status: Acute Qualifiers: Nicotine product type: cigarettes Substance use status: in withdrawal Qualified Code(s): F17.213 - Nicotine dependence, cigarettes, with withdrawal (4) Substance induced mood disorder Current Visit: Yes Status: Suspected - AMA Did Patient Leave Against Medical Advice: No CIWA Score - CIWA Score Nausea/Vomitin-No Nausea/No Vomiting Muscle Tremors: 1-None Visible, but [place] Anxiety: 2 Agitation: 0-Normal Activity Paroxysmal Sweats: No Perspiration Orientation: 0-Oriented Tacttile Disturbances: 0-None Auditory Disturbances: 0-None Visual Disturbances: 0-None Headache: 0-None Present CIWA-Ar Total Score: 3 COWS (PN) - Opiate Withdrawal Resting Pulse: 1= [place] 81-100 Sweatin= No chills or Flushing Restless Observation: 0= Sits Still Pupil Size: 0= Normal to Room Light Bone or Joint Aches: 0= None Runny Nose/ Eye Tearin= None GI Upset > 30mins: 0= None Tremor Observation of Outstretched Hands: 1= Tremor [place], Not Seen Yawning Observation: 0= None Anxiety or Irritability: 1=Feels Anxious/Irritable Goose Flesh Skin: 0=Smooth Skin COWS Score: 3
[2019-03-24] MEDS ORDERED: METHADONE HCL 5 MG TABLET (FOR DETOX USE ONLY) PO ONE (06:00)
== END 2019-03-23 11:21 | disposition home or self-care (01) | DRG 773 ==
LOC: YASAS 15:36 → Y3N 19:24
PROVIDERS: ADMIT Allergy & Immunology; ATTEND Allergy & Immunology
PROC: HZ2ZZZZ Detoxification Services for Substance Abuse Treatment (ICD-10-PCS; principal; 2019-03-19)
DX: F10.230 Alcohol dependence with withdrawal, uncomplicated (principal); F11.23 Opioid dependence with withdrawal; F13.20 Sedative, hypnotic or anxiolytic dependence, uncomplicated; F14.20 Cocaine dependence, uncomplicated; F17.213 Nicotine dependence, cigarettes, with withdrawal; F19.24 Other psychoactive substance dependence with psychoactive substance-induced mood disorder; F19.282 Other psychoactive substance dependence with psychoactive substance-induced sleep disorder; F32.9 Major depressive disorder, single episode, unspecified; G47.00 Insomnia, unspecified
CPT/HCPCS: 36415; 80053; 85027; 86593; 93005; 93010; J0735

== ENCOUNTER 2019-08-17 14:37 | Inpatient (IN) | payer OTHER ==
--- NOTE | 2019-08-17 15:21 | BHS.RME ---
Substance Use & Tx History - Substance Use History Heroin Substance amount: 2 bundles Frequency of use: Daily Substance route: Inhalation (ex: sniffing or snorting) Date of Last Use: 08/16/19 (First use age 41 y. OD one year ago. Has Narcan at home) Alcohol Substance amount: one pint Vodka Frequency of use: Daily Substance route: Oral Date of Last Use: 08/15/19 (First use age 37 y, no seizure. 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) Nicotine Substance amount: one pack Frequency of use: Daily Substance route: Smoking Date of Last Use: 08/17/19 (Began age 16 y) - Last Treatment Date of last treatment: 03/19 to 03/23/19 Treatment type: Substance Use Disorder (ZAIRA) Physical/Psych/Mental Status - Behavior General Behavior: Increased activity (restlessness, agitation) - Cooperativeness Cooperativeness: Cooperative - Thinking Thought Processes: Tight Thought content: Future oriented - Physical Health Problems Is patient presently having any pain?: No Does patient presently have any injuries (include location): No Does patient currently have a fever: No COWS - Scale Resting Pulse: 1= [place] 81-100 Sweatin=Flushed/Facial Moisture Restless Observation: 3= Extraneous Movement Pupil Size: 1= Pupils >than Normal Bone or Joint Aches: 2= Severe Diffuse Aches Runny Nose/ Eye Tearin= Runny Nose/Eyes GI Upset > 30mins: 2= Nausea/Diarrhea Tremor Observation: 2= Slight Tremor Visible Yawning Observation: 1= 1-2x During Session Anxiety or Irritability: 2=Irritable/Anxious Goose Flesh Skin: 0=Smooth Skin COWS Score: 18
--- NOTE | 2019-08-17 15:41 | HP ---
COWS - Scale Resting Pulse: 1= NE 81-100 Sweatin=Flushed/Facial Moisture Restless Observation: 3= Extraneous Movement Pupil Size: 1= Pupils >than Normal Bone or Joint Aches: 2= Severe Diffuse Aches Runny Nose/ Eye Tearin= Runny Nose/Eyes GI Upset > 30mins: 2= Nausea/Diarrhea Tremor Observation: 2= Slight Tremor Visible Yawning Observation: 1= 1-2x During Session Anxiety or Irritability: 2=Irritable/Anxious Goose Flesh Skin: 0=Smooth Skin COWS Score: 18 CIWA Score - Admission Criteria OASAS Guidelines: Admission for Medically Managed Detox: Requires at least one of the followin. CIWA greater than 12 2. Seizures within the past 24 hours 3. Delirium tremens within the past 24 hours 4. Hallucinations within the past 24 hours 5. Acute intervention needed for co occurring medical disorder 6. Acute intervention needed for co occurring psychiatric disorder 7. Severe withdrawal that cannot be handled at a lower level of care (continued vomiting, continued diarrhea, abnormal vital signs) requiring intravenous medication and/or fluids 8. Admitting History and Physical - Admission Chief Complaint: Mr. Doll is a 44 yo man who presents to [facility] requesting admission for detox. History of Present Illness: Mr. Doll is a 44 yo man who presents to [facility] requesting admission for detox. He was last here 03/19 to 03/23/19, placed on one to one stating "I want to kill myself" then later "That is a joke" when questioned about his prior statement. He left [place] in December 2018, 2017 and 2016. PMHPSH/psych/Legal: none SOC lives at home with his son Substance Use History Heroin Substance amount: 2 bundles Frequency of use: Daily Substance route: Inhalation (ex: sniffing or snorting) Date of Last Use: 08/16/19 (First use age 41 y. OD one year ago. Has Narcan at home) Alcohol Substance amount: one pint Vodka Frequency of use: Daily Substance route: Oral Date of Last Use: 08/15/19 (First use age 37 y, no seizure. 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) Nicotine Substance amount: one pack Frequency of use: Daily Substance route: Smoking Date of Last Use: 08/17/19 (Began age 16 y) - Last Treatment Date of last treatment: 03/19 to 03/23/19 Treatment type: Substance Use Disorder (ZAIRA) History Source: Patient Limitations to Obtaining History: No Limitations - Smoking History Smoking history: Current every day smoker Have you smoked in the past 12 months: Yes Aproximately how many cigarettes per day: 20 - Alcohol/Substance Use Hx Alcohol Use: Yes History of Substance Use: reports: Heroin - Social History ADL: Independent History of Recent Travel: No Admission ROS [facility] - [facility] Allergies/Adverse Reactions: Allergies Allergy/AdvReac Type Severity Reaction Status Date / Time No Known Allergies Allergy Verified 03/19/19 17:20 Exam Limitations: No Limitations - Ebola screening Have you been sick,other than usual withdrawal symptoms: No Do you have a fever: No - Review of Systems Constitutional: No Symptoms Reported EENT: reports: No Symptoms Reported Respiratory: reports: No Symptoms reported Cardiac: reports: No Symptoms Reported GI: reports: Diarrhea, Nausea, Vomiting Integumentary: reports: No Symptoms Reported Neuro: reports: Pre-Existing Deficit Endocrine: reports: No Symptoms Reported Hematology: reports: No Symptoms Reported Psychiatric: reports: Anxious Patient History - Patient Medical History Hx Anemia: No Hx Asthma: No Hx Chronic Obstructive Pulmonary Disease (COPD): No Hx Cancer: No Hx Cardiac Disorders: No Hx Congestive Heart Failure: No Hx Hypertension: No Hx Hypercholesterolemia: No Hx Pacemaker: No HX Cerebrovascular Accident: No Hx Seizures: No Hx Dementia: No Hx Diabetes: No Hx Gastrointestinal Disorders: No Hx Liver Disease: No Hx Genitourinary Disorders: No Hx Sexually Transmitted Disorders: No Hx Renal Disease (ESRD): No Hx Thyroid Disease: No Hx Human Immunodeficiency Virus (HIV): No (Negative 2018) Hx Hepatitis C: No (Negative 2016) Hx Depression: No Hx Suicide Attempt: No Hx Bipolar Disorder: No Hx Schizophrenia: No - Patient Surgical History Past Surgical History: No Hx Neurologic Surgery: No Hx Cataract Extraction: No Hx Cardiac Surgery: No Hx Lung Surgery: No Hx Breast Surgery: No Hx Breast Biopsy: No Hx Abdominal Surgery: No Hx Appendectomy: No Hx Cholecystectomy: No Hx Genitourinary Surgery: No Hx Section: No Hx Orthopedic Surgery: No Anesthesia Reaction: No - Smoking Cessation Smoking history: Current every day smoker Have you smoked in the past 12 months: Yes Aproximately how many cigarettes per day: 20 Hx Chewing Tobacco Use: No Initiated information on smoking cessation: Yes 'Breaking Loose' booklet given: 08/17/19 Admission Physical Exam [facility] - Physical General Appearance: Yes: Nourished, Appropriately Dressed, Moderate Distress HEENTM: Yes: EOMI, Hearing grossly Normal, Normocephalic, Normal Voice Respiratory: Yes: Lungs Clear, Normal Breath Sounds Neck: Yes: Within Normal Limits, Supple Breast: Yes: Breast Exam Deferred Cardiology: Yes: Regular Rhythm, Regular Rate, S1, S2 Abdominal: Yes: Normal Bowel Sounds, Non Tender, Soft, Protuberent Back: Yes: Normal Inspection Musculoskeletal: Yes: Gait Steady Extremities: Yes: Normal Inspection, Non-Tender Neurological: Yes: Alert Integumentary: Yes: Normal Color, Warm, Diaphoresis - Diagnostic (1) Alcohol dependence with uncomplicated withdrawal Current Visit: Yes Status: Acute (2) Nicotine dependence Current Visit: Yes Status: Acute Qualifiers: Nicotine product type: cigarettes Substance use status: in withdrawal Qualified Code(s): F17.213 - Nicotine dependence, cigarettes, with withdrawal (3) Opioid dependence with withdrawal Current Visit: Yes Status: Acute Cleared for Admission [facility] - Detox or Rehab [facility] Level of Care: Medically Managed Detox Regimen/Protocol: Methadone/Librium Breathalyzer - Breathalyzer Breathalyzer: 0 Urine Drug Screen - Test Device Lot number: [id number] Expiration date: 01/12/21 - Control Is test valid?: Yes - Results Drug screen NEGATIVE: No Urine drug screen results: JEREMY-Cocaine, FEN-Fentanyl, BZO-Benzodiazepines Inpatient Rehab Admission - Rehab Decision to Admit Inpatient rehab admission?: No
[2019-08-17] MEDS ORDERED: IBUPROFEN 400 MG TABLET (FP) PO PRN (15:51)
[2019-08-17] MEDS ORDERED: MENTHOL/PHENOL 1 EACH UD MM PRN (15:51)
[2019-08-17] MEDS ORDERED: MAG HYDROX/AL HYDROX/SIMETH 30 ML UNIT-DOSE CUP PO PRN (15:51)
[2019-08-17] MEDS ORDERED: METHOCARBAMOL 500 MG TABLET PO PRN (15:51)
[2019-08-17] MEDS ORDERED: ONDANSETRON *ODT* 4 MG TABLET SL PRN (15:51)
[2019-08-17] MEDS ORDERED: BISMUTH SUBSALICYLATE 524 MG/30 ML UD PO PRN (15:51)
[2019-08-17] MEDS ORDERED: MAGNESIUM HYDROX 2400MG/30ML ORAL SUSPENSION 30 ML CUP PO PRN (15:51)
[2019-08-17] MEDS ORDERED: ACETAMINOPHEN 325 MG TABLET (FP) PO PRN ×2 (15:51)
[2019-08-17] MEDS ORDERED: MAGNESIUM CITRATE 300 ML BOTTLE PO PRN (15:51)
[2019-08-17 16:23] VITALS: BMI 34.7
[2019-08-17] MEDS: NICOTINE POLACRILEX 2 MG GUM BUC PRN ×2 (16:43→22:05)
[2019-08-17] MEDS: PRENATAL VITAMINS W/ FOLIC ACID TABLET (FP) PO SCH (16:44)
[2019-08-17] MEDS: NICOTINE 21 MG/24 HOURS TOPICAL PATCH TD SCH (16:44)
[2019-08-17] MEDS ORDERED: METHADONE HCL 10 MG TABLET (FOR DETOX USE ONLY) PO ONE (16:45)
[2019-08-17] MEDS: NICOTINE 7 MG/24 HOURS TOPICAL PATCH TD SCH (16:45)
[2019-08-17] MEDS: diazePAM 5 MG TABLET PO PRN ×2 (17:08→23:01)
[2019-08-17] MEDS: hydrOXYzine PAMOATE 25 MG CAPSULE (FP) PO PRN (17:08)
[2019-08-17] MEDS ORDERED: hydrOXYzine PAMOATE 25 MG CAPSULE (FP) PO SCH (18:00)
[2019-08-17] MEDS: cloNIDine HCL 0.1 MG TABLET PO PRN (19:00)
[2019-08-17] MEDS: MELATONIN 5 MG TABLETS PO SCH (22:00)
[2019-08-17] MEDS: THIAMINE HCL 100 MG TABLET (FP) PO SCH (22:02)
[2019-08-18] MEDS: diazePAM 5 MG TABLET PO PRN (04:56)
[2019-08-18] MEDS ORDERED: METHADONE HCL 10 MG TABLET (FOR DETOX USE ONLY) ONE (08:44)
[2019-08-18] MEDS ORDERED: METHADONE HCL 5 MG TABLET (FOR DETOX USE ONLY) ONE (08:44)
[2019-08-18] MEDS: cloNIDine HCL 0.1 MG TABLET PO PRN (09:00)
[2019-08-18] MEDS: NICOTINE 21 MG/24 HOURS TOPICAL PATCH TD SCH (09:01)
[2019-08-18] MEDS: PRENATAL VITAMINS W/ FOLIC ACID TABLET (FP) PO SCH (09:02)
[2019-08-18] MEDS: NICOTINE 7 MG/24 HOURS TOPICAL PATCH TD SCH (09:02)
[2019-08-18] MEDS: NICOTINE POLACRILEX 2 MG GUM BUC PRN (09:03)
--- NOTE | 2019-08-18 09:21 | PN ---
[facility] CIWA - CIWA Score Nausea/Vomitin-Int. Nausea w/Dry Heave Muscle Tremors: 5 Anxiety: 5 Agitation: 4-Moderately Restless Paroxysmal Sweats: 1-Minimal Palms Moist Orientation: 0-Oriented Tacttile Disturbances: 0-None Auditory Disturbances: 0-None Visual Disturbances: 0-None Headache: 0-None Present CIWA-Ar Total Score: 19 [facility] COWS - Scale Sweatin= Chills/Flushing Restless Observation: 3= Extraneous Movement Pupil Size: 0= Normal to Room Light Bone or Joint Aches: 2= Severe Diffuse Aches Runny Nose/ Eye Tearin= Nasal Congestion GI Upset > 30mins: 2= Nausea/Diarrhea (no diarrhea) Tremor Observation of Outstretched Hands: 2= Slight Tremor Visible Yawning Observation: 0= None Anxiety or Irritability: 2=Irritable/Anxious Goose Flesh Skin: 3=Piloerection [facility] Progress Note (SOAP) Subjective: Pt is a 44 y/o male admitted yesterday for Heroin/Alcohol detox due to withdrawal sx Pt c/o severe withdrawal sx: Hot/cold sweats Anxiety Shakes(tremulous) goose bumps(seen) nausea with dry heaves intemittent sleep Objective: 08/18/19 11:20 Vital Signs - 24 hr 08/17/19 08/17/19 08/17/19 16:19 16:37 19:57 Temperature 98.0 F 96.4 F L 96.9 F L Pulse Rate 100 H 102 H 91 H Respiratory 18 20 20 Rate Blood Pressure 147/87 146/94 130/69 O2 Sat by Pulse 98 Oximetry (%) 08/18/19 08/18/19 08/18/19 00:30 03:30 05:19 Temperature 98 F Pulse Rate 79 Respiratory 20 20 20 Rate Blood Pressure 118/65 O2 Sat by Pulse 98 Oximetry (%) labs pendin Alert o x 3 pnad oob ambulating with steady gait but tremulous Assessment: 08/18/19 09:20 moderated to severe w/s Alert o x 3 nad oob ambulating with steady gait Plan: cont detox increase po fluids maintain safety Add Librium to Methadone Regimen D/C previous Valium prn
[2019-08-18] MEDS ORDERED: METHADONE (DETOX) 20 MG, METHADONE (DETOX) 5 MG PO ONE (10:00)
[2019-08-18] MEDS: chlordiazePOXIDE HCL 25 MG CAPSULE PO SCH ×3 (10:38→22:11)
[2019-08-18 11:25] LABS: HEMATOCRIT 41.1 % (35.4-49); HEMOGLOBIN 13.6 GM/dL (11.7-16.9); MCH 28.1 pg (25.7-33.7); MEAN CELL VOLUME 85.2 fl (80-96); MEAN PLT VOLUME 8.2 fl (7.5-11.1); PLATELET COUNT 242 K/MM3 (134-434); RBC 4.82 M/mm3 (4.00-5.60); RDW 14.6 % (11.9-15.9); WHITE BLOOD COUNT 8.3 K/mm3 (4.0-10.0)
[2019-08-18 11:29] LABS: ALBUMIN 3.7 g/dl (3.4-5.0); BILIRUBIN,TOTAL 0.3 mg/dL (0.2-1); BLOOD UREA NITROGEN 14.4 mg/dL (7-18); CALCIUM 9.3 mg/dL (8.5-10.1); CREATININE 0.7 mg/dL (0.55-1.3); POTASSIUM 4.1 mmol/L (3.5-5.1); TOT PROT 7.3 g/dl (6.4-8.2)
[2019-08-18] MEDS: chlordiazePOXIDE HCL 25 MG CAPSULE PO PRN (12:42)
--- NOTE | 2019-08-18 15:34 | PN ---
[facility] Progress Note Note: Pt with a prior hx of Mood Disorder. Requesting for psych Eval today after meeting with his counselor per nurse Briseno. P:Pt to follow up with psych consult.
[2019-08-18] MEDS: hydrOXYzine PAMOATE 25 MG CAPSULE (FP) PO PRN (16:57)
[2019-08-18] MEDS: THIAMINE HCL 100 MG TABLET (FP) PO SCH (22:10)
[2019-08-18] MEDS: MELATONIN 5 MG TABLETS PO SCH (22:10)
[2019-08-19] MEDS: chlordiazePOXIDE HCL 25 MG CAPSULE PO PRN (00:11)
[2019-08-19] MEDS: hydrOXYzine PAMOATE 25 MG CAPSULE (FP) PO PRN (06:14)
[2019-08-19] MEDS: chlordiazePOXIDE HCL 25 MG CAPSULE PO SCH ×2 (06:14→10:08)
[2019-08-19] MEDS ORDERED: METHADONE HCL 10 MG TABLET (FOR DETOX USE ONLY) PO ONE (10:00)
[2019-08-19] MEDS: PRENATAL VITAMINS W/ FOLIC ACID TABLET (FP) PO SCH (10:07)
[2019-08-19] MEDS: NICOTINE 7 MG/24 HOURS TOPICAL PATCH TD SCH (10:10)
[2019-08-19] MEDS: NICOTINE 21 MG/24 HOURS TOPICAL PATCH TD SCH (10:10)
[2019-08-19 10:51] VITALS: BP 127/92; PULSE 86; TEMP 97.5
--- NOTE | 2019-08-19 11:05 | PN ---
S CIWA - CIWA Score Nausea/Vomitin-No Nausea/No Vomiting Muscle Tremors: 4-Moderate,w/Arms Extend Anxiety: 4-Mod. Anxious/Guarded Agitation: 4-Moderately Restless Paroxysmal Sweats: 1-Minimal Palms Moist Orientation: 0-Oriented Tacttile Disturbances: 0-None Auditory Disturbances: 0-None Visual Disturbances: 0-None Headache: 0-None Present CIWA-Ar Total Score: 13 [facility] COWS - Scale Resting Pulse: 1= [place] 81-100 Sweatin= Chills/Flushing Restless Observation: 3= Extraneous Movement Pupil Size: 0= Normal to Room Light Bone or Joint Aches: 2= Severe Diffuse Aches Runny Nose/ Eye Tearin= Nasal Congestion GI Upset > 30mins: 0= None Tremor Observation of Outstretched Hands: 2= Slight Tremor Visible Yawning Observation: 0= None Anxiety or Irritability: 2=Irritable/Anxious Goose Flesh Skin: 3=[place]il[place] COWS Score: 15 [facility] Progress Note (SOAP) Subjective: C/o anxiety irritability tremors chills intermittent sleep(wants to see the psych stating he takes Ambien or Seroquel) Objective: 08/19/19 11:02 Vital Signs - 24 hr 08/18/19 08/18/19 08/18/19 12:49 16:53 20:33 Temperature 98.0 F 97.5 F L 98.2 F Pulse Rate 91 H 82 90 Respiratory 20 18 18 Rate Blood Pressure 134/90 125/69 128/73 O2 Sat by Pulse 97 97 Oximetry (%) 08/19/19 08/19/19 08/19/19 00:30 03:30 06:30 Temperature 97.3 F L Pulse Rate 78 Respiratory 18 18 18 Rate Blood Pressure 139/82 O2 Sat by Pulse 97 Oximetry (%) 08/19/19 09:44 Temperature 97.5 F L Pulse Rate 86 Respiratory 20 Rate Blood Pressure 127/92 O2 Sat by Pulse 97 Oximetry (%) Laboratory Tests 08/18/19 08/18/19 08/18/19 08:15 08:15 08:15 WBC 8.3 RBC 4.82 Hgb 13.6 Hct 41.1 MCV 85.2 MCH 28.1 MCHC 33.0 RDW 14.6 Plt Count 242 MPV 8.2 Sodium Potassium Chloride Carbon Dioxide Anion Gap BUN Creatinine Est GFR (CKD-EPI)AfAm Est GFR (CKD-EPI)NonAf Random Glucose Calcium Total Bilirubin AST ALT Alkaline Phosphatase Total Protein Albumin Syphilis Serology Non-reactive HIV Ag/Ab Combo Qual Negative 08/18/19 08:15 WBC RBC Hgb Hct MCV MCH MCHC RDW Plt Count MPV Sodium 138 Potassium 4.1 Chloride 102 Carbon Dioxide 30 Anion Gap 6 L BUN 14.4 Creatinine 0.7 Est GFR (CKD-EPI)AfAm 133.96 Est GFR (CKD-EPI)NonAf 115.58 Random Glucose 68 L Calcium 9.3 Total Bilirubin 0.3 AST 25 ALT 57 Alkaline Phosphatase 62 Total Protein 7.3 Albumin 3.7 Syphilis Serology HIV Ag/Ab Combo Qual covid-19 result pending Assessment: 08/19/19 11:04 withdrawal sx Plan: cont detox increase po fluids maintain safety psych consult follow up
--- NOTE | 2019-08-19 11:58 | DS ---
[facility] Detox Discharge Summary Admission Date: 08/17/19 Discharge Date: 08/19/19 - History Present History: Alcohol Dependence, Opioid Dependence Additional Comments: Pt declined to continue and complete detox stating "we are leaving, me and my (reports is on another unit in the building)". All efforts to encourage pt to stay in treatment to address his drug use and withdrawal symptoms failed. Pt states "I will be fine. I'm not gonna use. We have to go and see the kids". However, pt has been instructed to go to the nearest ER around him if medical care is needed. Pt saw a counselor Adelianirav CottrellChato for CD aftercare recommendations. Pt reports to advertising copywriter that he has a PCP Dr Hui with [facility], [place], [place]. Encouraged pt to follow up with PCP for medical care as needed. Pertinent Past History: Mood disorder Insomnia - Physical Exam Results Vital Signs: Vital Signs Temperature 97.5 F L 08/19/19 09:44 Pulse Rate 86 08/19/19 09:44 Respiratory Rate 20 08/19/19 09:44 Blood Pressure 127/92 08/19/19 09:44 O2 Sat by Pulse Oximetry (%) 97 08/19/19 09:44 Alert o x 3,anxious,irritable nad oob ambulating with steady gait lungs ctab extremities:no edema, skin intact;Active ROM Pertinent Admission Physical Exam Findings: Laboratory Tests 08/18/19 08/18/19 08/18/19 08:15 08:15 08:15 WBC 8.3 RBC 4.82 Hgb 13.6 Hct 41.1 MCV 85.2 MCH 28.1 MCHC 33.0 RDW 14.6 Plt Count 242 MPV 8.2 Sodium Potassium Chloride Carbon Dioxide Anion Gap BUN Creatinine Est GFR (CKD-EPI)AfAm Est GFR (CKD-EPI)NonAf Random Glucose Calcium Total Bilirubin AST ALT Alkaline Phosphatase Total Protein Albumin Syphilis Serology Non-reactive HIV Ag/Ab Combo Qual Negative 08/18/19 08:15 WBC RBC Hgb Hct MCV MCH MCHC RDW Plt Count MPV Sodium 138 Potassium 4.1 Chloride 102 Carbon Dioxide 30 Anion Gap 6 L BUN 14.4 Creatinine 0.7 Est GFR (CKD-EPI)AfAm 133.96 Est GFR (CKD-EPI)NonAf 115.58 Random Glucose 68 L Calcium 9.3 Total Bilirubin 0.3 AST 25 ALT 57 Alkaline Phosphatase 62 Total Protein 7.3 Albumin 3.7 Syphilis Serology HIV Ag/Ab Combo Qual covid-19 result pending - Treatment Hospital Course: Discharged Condition Good (Alert o x 3 nad oob ambulating with steady gait lungs ctab), Rehab Referral Accepted Patient has Accepted a Rehab Referral to: [facility], [place], [place]. - Medication Discharge Medications: Ambulatory Orders NK [No Known Home Medication] 03/19/19 - Diagnosis (1) Nicotine dependence Status: Acute Qualifiers: Nicotine product type: cigarettes Substance use status: in withdrawal Qualified Code(s): F17.213 - Nicotine dependence, cigarettes, with withdrawal (2) Opioid dependence with withdrawal Status: Acute (3) Cocaine dependence, uncomplicated Status: Acute - AMA Did Patient Leave Against Medical Advice: Yes (AMA)
[2019-08-20] MEDS ORDERED: chlordiazePOXIDE HCL 25 MG CAPSULE PO SCH (05:00)
[2019-08-20] MEDS ORDERED: METHADONE (DETOX) 10 MG, METHADONE (DETOX) 5 MG PO ONE (10:00)
[2019-08-21] MEDS ORDERED: chlordiazePOXIDE HCL 10 MG CAPSULE PO PRN
[2019-08-21] MEDS ORDERED: chlordiazePOXIDE HCL 10 MG CAPSULE PO SCH (05:00)
[2019-08-21] MEDS ORDERED: METHADONE HCL 10 MG TABLET (FOR DETOX USE ONLY) PO ONE (10:00)
[2019-08-22] MEDS ORDERED: chlordiazePOXIDE HCL 10 MG CAPSULE PO SCH (05:00)
[2019-08-22] MEDS ORDERED: METHADONE HCL 5 MG TABLET (FOR DETOX USE ONLY) PO ONE (06:00)
[2019-08-23] MEDS ORDERED: chlordiazePOXIDE HCL 10 MG CAPSULE PO ONE (05:00)
== END 2019-08-19 11:25 | disposition left against medical advice (07) | DRG 770 ==
LOC: YASAS 14:37 → Y5N DETOX 16:16
PROVIDERS: ADMIT Allergy & Immunology; ATTEND Allergy & Immunology
PROC: HZ2ZZZZ Detoxification Services for Substance Abuse Treatment (ICD-10-PCS; principal; 2019-08-17)
DX: F11.23 Opioid dependence with withdrawal (principal); F10.230 Alcohol dependence with withdrawal, uncomplicated; F14.20 Cocaine dependence, uncomplicated; F17.210 Nicotine dependence, cigarettes, uncomplicated; F39 Unspecified mood [affective] disorder; G47.00 Insomnia, unspecified
CPT/HCPCS: 36415; 80053; 85027; 86780; 87389; J0735; U0003

== ENCOUNTER 2020-04-06 18:42 | Inpatient (IN) | payer OTHER ==
[2020-04-07] MEDS ORDERED: MAG HYDROX/AL HYDROX/SIMETH 30 ML UNIT-DOSE CUP PO PRN (02:44)
[2020-04-07] MEDS ORDERED: MAGNESIUM HYDROX 2400MG/30ML ORAL SUSPENSION 30 ML CUP PO PRN (02:44)
[2020-04-07] MEDS ORDERED: METHADONE HCL 10 MG TABLET (FOR DETOX USE ONLY) PO ONE (02:44)
[2020-04-07] MEDS ORDERED: ACETAMINOPHEN 325 MG TABLET (FP) PO PRN ×2 (02:44)
[2020-04-07] MEDS ORDERED: BISMUTH SUBSALICYLATE 524 MG/30 ML UD PO PRN (02:44)
[2020-04-07] MEDS ORDERED: ONDANSETRON *ODT* 4 MG TABLET SL PRN (02:44)
[2020-04-07] MEDS ORDERED: MAGNESIUM CITRATE 300 ML BOTTLE PO PRN (02:44)
[2020-04-07] MEDS ORDERED: MENTHOL/PHENOL 1 EACH UD MM PRN (02:44)
[2020-04-07] MEDS ORDERED: IBUPROFEN 400 MG TABLET (FP) PO PRN (02:44)
[2020-04-07] MEDS: METHOCARBAMOL 500 MG TABLET PO PRN ×2 (03:17→11:17)
[2020-04-07] MEDS ORDERED: TUBERCULIN PPD 5 TU/0.1ML VIAL ID ONE (03:52)
[2020-04-07] MEDS ORDERED: diazePAM 5 MG TABLET ONE (05:52)
[2020-04-07] MEDS: diazePAM 5 MG TABLET PO SCH ×4 (05:57→22:26)
[2020-04-07] MEDS: PRENATAL VITAMINS W/ FOLIC ACID TABLET (FP) PO SCH (11:15)
[2020-04-07] MEDS: NICOTINE 21 MG/24 HOURS TOPICAL PATCH TD SCH (11:45)
[2020-04-07] MEDS: diazePAM 5 MG TABLET PO PRN ×2 (13:37→18:23)
[2020-04-07 15:35] LABS: ALBUMIN 3.1 g/dl (3.4-5.0); CALCIUM 8.6 mg/dL (8.5-10.1)
[2020-04-07 15:39] LABS: CREATININE 0.7 mg/dL (0.55-1.3)
[2020-04-07 15:40] LABS: BILIRUBIN,TOTAL 0.6 mg/dL (0.2-1)
[2020-04-07 15:41] LABS: HEMATOCRIT 38.2 % (35.4-49); HEMOGLOBIN 12.9 GM/dL (11.7-16.9); MCH 28.2 pg (25.7-33.7); MCHC 33.8 g/dl (32.0-35.9); MEAN CELL VOLUME 83.6 fl (80-96); MEAN PLT VOLUME 7.7 fl (7.5-11.1); PLATELET COUNT 288 K/MM3 (134-434); RBC 4.56 M/mm3 (4.00-5.60); RDW 15.1 % (11.9-15.9); WHITE BLOOD COUNT 6.7 K/mm3 (4.0-10.0)
[2020-04-07] MEDS: hydrOXYzine PAMOATE 25 MG CAPSULE (FP) PO PRN (15:53)
[2020-04-07] MEDS: cloNIDine HCL 0.1 MG TABLET PO PRN (18:23)
[2020-04-07] MEDS ORDERED: MELATONIN 5 MG TABLETS PO SCH (22:00)
[2020-04-07] MEDS: THIAMINE HCL 100 MG TABLET (FP) PO SCH (22:25)
[2020-04-07] MEDS: SUVOREXANT 10 MG TABLET PO PRN (22:26)
[2020-04-07] MEDS: NICOTINE POLACRILEX 2 MG GUM BUC PRN (23:23)
[2020-04-08] MEDS: diazePAM 5 MG TABLET PO PRN ×3 (01:00→17:11)
[2020-04-08] MEDS: cloNIDine HCL 0.1 MG TABLET PO PRN ×3 (04:22→22:05)
[2020-04-08] MEDS: NICOTINE POLACRILEX 2 MG GUM BUC PRN ×4 (04:23→22:14)
[2020-04-08] MEDS: diazePAM 5 MG TABLET PO SCH ×3 (06:12→22:05)
[2020-04-08] MEDS ORDERED: METHADONE HCL 5 MG TABLET (FOR DETOX USE ONLY) ONE (09:45)
[2020-04-08] MEDS ORDERED: METHADONE HCL 10 MG TABLET (FOR DETOX USE ONLY) ONE (09:46)
[2020-04-08] MEDS ORDERED: METHADONE (DETOX) 20 MG, METHADONE (DETOX) 5 MG PO ONE (10:00)
[2020-04-08] MEDS: NICOTINE 21 MG/24 HOURS TOPICAL PATCH TD SCH (10:21)
[2020-04-08] MEDS: PRENATAL VITAMINS W/ FOLIC ACID TABLET (FP) PO SCH (10:22)
[2020-04-08] MEDS: hydrOXYzine PAMOATE 25 MG CAPSULE (FP) PO PRN (19:13)
[2020-04-08] MEDS: THIAMINE HCL 100 MG TABLET (FP) PO SCH (22:05)
[2020-04-08] MEDS: SUVOREXANT 10 MG TABLET PO PRN (22:13)
[2020-04-09] MEDS: diazePAM 5 MG TABLET PO PRN ×2 (01:52→13:00)
[2020-04-09] MEDS: METHOCARBAMOL 500 MG TABLET PO PRN (01:53)
[2020-04-09] MEDS: NICOTINE POLACRILEX 2 MG GUM BUC PRN ×4 (01:55→20:21)
[2020-04-09] MEDS: diazePAM 5 MG TABLET PO SCH ×2 (05:15→18:01)
[2020-04-09] MEDS ORDERED: METHADONE HCL 10 MG TABLET (FOR DETOX USE ONLY) PO ONE (10:00)
[2020-04-09] MEDS: PRENATAL VITAMINS W/ FOLIC ACID TABLET (FP) PO SCH (10:17)
[2020-04-09] MEDS: NICOTINE 21 MG/24 HOURS TOPICAL PATCH TD SCH (10:17)
[2020-04-09] MEDS: cloNIDine HCL 0.1 MG TABLET PO PRN (20:21)
[2020-04-09] MEDS: THIAMINE HCL 100 MG TABLET (FP) PO SCH (22:10)
[2020-04-09] MEDS: SUVOREXANT 10 MG TABLET PO PRN (22:10)
[2020-04-10] MEDS: METHOCARBAMOL 500 MG TABLET PO PRN ×3 (01:26→22:38)
[2020-04-10] MEDS: diazePAM 5 MG TABLET PO PRN (01:26)
[2020-04-10] MEDS: NICOTINE POLACRILEX 2 MG GUM BUC PRN ×4 (01:29→22:38)
[2020-04-10] MEDS ORDERED: diazePAM 5 MG TABLET PO ONE (06:00)
[2020-04-10] MEDS ORDERED: METHADONE HCL 5 MG TABLET (FOR DETOX USE ONLY) ONE (09:32)
[2020-04-10] MEDS ORDERED: METHADONE HCL 10 MG TABLET (FOR DETOX USE ONLY) ONE (09:33)
[2020-04-10] MEDS ORDERED: METHADONE (DETOX) 10 MG, METHADONE (DETOX) 5 MG PO ONE (10:00)
[2020-04-10] MEDS: hydrOXYzine PAMOATE 25 MG CAPSULE (FP) PO PRN ×3 (10:07→18:37)
[2020-04-10] MEDS: PRENATAL VITAMINS W/ FOLIC ACID TABLET (FP) PO SCH (10:08)
[2020-04-10] MEDS: NICOTINE 21 MG/24 HOURS TOPICAL PATCH TD SCH (10:08)
[2020-04-10] MEDS ORDERED: cloNIDine HCL 0.1 MG TABLET PO ONE (12:45)
[2020-04-10] MEDS: SUVOREXANT 10 MG TABLET PO PRN (22:37)
[2020-04-10] MEDS: THIAMINE HCL 100 MG TABLET (FP) PO SCH (22:38)
[2020-04-11] MEDS: METHOCARBAMOL 500 MG TABLET PO PRN (06:32)
[2020-04-11] MEDS: NICOTINE POLACRILEX 2 MG GUM BUC PRN ×2 (06:33→09:12)
[2020-04-11 09:19] VITALS: BP 150/89; PULSE 82; TEMP 97.2
[2020-04-11] MEDS: NICOTINE 21 MG/24 HOURS TOPICAL PATCH TD SCH (09:48)
[2020-04-11] MEDS: PRENATAL VITAMINS W/ FOLIC ACID TABLET (FP) PO SCH (09:49)
[2020-04-11] MEDS ORDERED: METHADONE HCL 10 MG TABLET (FOR DETOX USE ONLY) PO ONE (10:00)
[2020-04-12] MEDS ORDERED: METHADONE HCL 5 MG TABLET (FOR DETOX USE ONLY) PO ONE (06:00)
== END 2020-04-11 09:58 | disposition home or self-care (01) | DRG 773 ==
LOC: YASAS 18:42 → Y6N 04-07 10:29
PROVIDERS: ADMIT Allergy & Immunology; ATTEND Allergy & Immunology
PROC: HZ2ZZZZ Detoxification Services for Substance Abuse Treatment (ICD-10-PCS; principal; 2020-04-07)
DX: F11.23 Opioid dependence with withdrawal (principal); F10.230 Alcohol dependence with withdrawal, uncomplicated; F13.20 Sedative, hypnotic or anxiolytic dependence, uncomplicated; F17.210 Nicotine dependence, cigarettes, uncomplicated; F19.282 Other psychoactive substance dependence with psychoactive substance-induced sleep disorder; F19.24 Other psychoactive substance dependence with psychoactive substance-induced mood disorder; G47.00 Insomnia, unspecified; R56.9 Unspecified convulsions
CPT/HCPCS: 36415; 80053; 85027; 86780; 93005; 93010; C9803; J0735; U0003